=== PATIENT | female | born 1960 | race Caucasian/White ===

== ENCOUNTER 2021-11-18 02:08 | Day surgery (SDC) | payer OTHER, SELFPAY ==
[2021-10-25 10:54] VITALS: BMI 33.1
--- NOTE | 2021-11-15 16:00 | P.HP_ITS ---
History of Present Illness History of Present Illness Consent: Risks, benefits, and alternatives have been discussed and questions answered. Patient agrees to proceed with procedure. Chief complaint: neoplasm screening Narrative: Livier Smith is a 61 year old female referred for colon cancer screening. Her last colonoscopy was 10 years ago. Review of Systems Review of Systems: All systems reviewed & are unremarkable except as noted in HPI and below PMFSH Social History Social History Smoking packs per day: 0.5 Smoking cigarettes per day: 10.0 Years smoked: 35 Smoking pack-years: 17.50 Smoking status: Current every day smoker Tobacco type: cigarettes Alcohol intake: current Alcohol use details: occasional Substance use: never Substance use type: does not use Living arrangements: with family Spiritual care concerns: No Meds Home Medications and Allergies Home Medications Medication Instructions Recorded Confirmed Type fenofibric acid (choline) 135 mg 135 mg PO DAILY 10/25/21 11/18/21 History capsule,delayed release icosapent ethyl 1 gram capsule 1 g PO DAILY 10/25/21 11/18/21 History lysine 1,000 mg tablet 1,000 mg PO DAILY 10/25/21 11/18/21 History triamterene 37.5 1 cap PO DAILY 10/25/21 11/18/21 History mg-hydrochlorothiazide 25 mg capsule Allergies Allergy/AdvReac Type Severity Reaction Status Date / Time No Known Allergies Allergy Unknown Verified 11/18/21 06:22 Exam Resp: Auscultation: clear to auscultation bilaterally Cardio: Rate: regular rate Rhythm: regular rhythm GI: GI Palp: Yes Soft to palpation and No Tenderness to palpation present (GI) Assessment and Plan Assessment and plan (1) Colon cancer screening: Code(s): Z12.11 - Encounter for screening for malignant neoplasm of colon Status: Acute Assessment and Plan: Colonoscopy with possible biopsy or polypectomy or cautery or injection of subs tances.
[2021-11-18 06:15] VITALS: BP 149/95; PULSE 98; RESP 18; TEMP 36; O2SAT 98; BMI 38.9
[2021-11-18] MEDS: LACTATED RINGERS 1,000 ML 150 ML IV CONT (06:35)
--- NOTE | 2021-11-18 07:22 | P.PNAN_ITS ---
Anes - Initial Pre Proc Eval Procedure: Operation Date: 11/18/21 07:30 Proposed Procedures p Screening Colonoscopy - Ha Lyons MD Date/Time: 11/18/21 07:22 Surgeon: Ha Lyons MD Pre Op Diagnosis: neoplasm screening Patient Data Age: 61 Gender: F Height: 1.55 m Weight: 93.4 kg Last Vital Signs Temp 36.0 C L 11/18/21 06:15 Pulse 98 11/18/21 06:15 Resp 18 11/18/21 06:15 BP 149/95 H 11/18/21 06:15 Pulse Ox 98 11/18/21 06:15 O2 Del Method Room Air 11/18/21 06:15 Allergies Allergy/AdvReac Type Severity Reaction Status Date / Time No Known Allergies Allergy Unknown Verified 11/18/21 06:22 Home Medications Medication Instructions Recorded Confirmed Type fenofibric acid (choline) 135 mg 135 mg PO DAILY 10/25/21 11/18/21 History capsule,delayed release icosapent ethyl 1 gram capsule 1 g PO DAILY 10/25/21 11/18/21 History lysine 1,000 mg tablet 1,000 mg PO DAILY 10/25/21 11/18/21 History triamterene 37.5 1 cap PO DAILY 10/25/21 11/18/21 History mg-hydrochlorothiazide 25 mg capsule Patient hx anesthesia problems: none Family hx anesthesia problems: none Results Review: All pre-operative results and documents have been reviewed as part of the pre- operative evaluation. [facility] Past Medical History Medical History (Updated 11/18/21 @ 07:24 by Dustin Vega MD) HTN (hypertension) Hyperlipidemia Obesity Social History Social History Smoking packs per day: 0.5 Smoking cigarettes per day: 10.0 Years smoked: 35 Smoking pack-years: 17.50 Smoking status: Current every day smoker Tobacco type: cigarettes Alcohol intake: current Alcohol use details: occasional Substance use: never Substance use type: does not use Living arrangements: with family Spiritual care concerns: No Anes - Eval Final PreProcedure Day of Procedure 11/18/21 07:22 Patient weight: obese Heart: regular rate and rhythm Lungs: clear to auscultation and normal air movement Airway: Mallampati scale class II Neurological: alert and oriented Last oral intake: >/= 8 hours ASA classification: III Emergent: no Anesthetic plan: proceed Anesthesia type and monitoring: general GIVS Results Review: All pre-operative results and documents have been reviewed as part of the pre- operative evaluation. Informed Consent: The patient's anesthetic plan and its attendant risks and benefits were discussed with the patient/family/POA. Questions were solicited and answers provided to the satisfaction of the patient/family/POA.
[2021-11-18 07:50] VITALS: BP 93/56; PULSE 67; RESP 20; O2SAT 98
[2021-11-18 08:00] VITALS: BP 104/60; PULSE 67; RESP 19; O2SAT 99
[2021-11-18 08:10] VITALS: BP 114/77; PULSE 69; RESP 17; O2SAT 99
== END 2021-11-18 08:13 | disposition home or self-care (01) ==
PROVIDERS: PCP Nurse Practitioner Adult Health; Visit Provider Internal Medicine Gastroenterology
PROC: 0DJD8ZZ Inspection of Lower Intestinal Tract, Via Natural or Artificial Opening Endoscopic (ICD-10-PCS; CPT 45378; principal; 2021-11-18 07:30)
DX: Z12.11 Encounter for screening for malignant neoplasm of colon (principal); K64.4 Residual hemorrhoidal skin tags; K63.5 Polyp of colon; K57.30 Diverticulosis of large intestine without perforation or abscess without bleeding; I10 Essential (primary) hypertension; E78.5 Hyperlipidemia, unspecified; F17.210 Nicotine dependence, cigarettes, uncomplicated; E66.9 Obesity, unspecified; Z68.38 Body mass index [BMI] 38.0-38.9, adult
CPT/HCPCS: 45378; 88305; J2704; J7120

== ENCOUNTER 2022-11-04 13:19 | Outpatient (CLI) | payer OTHER, SELFPAY ==
--- NOTE | ~2022-11-04 | CT_ITS ---
EXAMINATION: CT lung screening DATE: 11/04/2022 13:48 INDICATION: 20 pack year hx- 1/2 ppd for 40 years TECHNIQUE: Computed tomography (CT) of the chest was performed without intravenous contrast. Addition al 3D reconstructions utilizing coronal maximum intensity projection (MIP) were performed. Automated exposure control and iterative reconstruction technique were employed. The dose-length product was 17 0.29 mGy-cm. COMPARISON: None FINDINGS: There are few scattered small bilateral calcified pulmonary nodules consistent with old granulomatous disease. No noncalcified pulmonary nodules identified. No pneumonia, pulmonary edema or pleural effu armando. Heart size is normal. Aortic valve calcification. No pericardial effusion. Thoracic aorta is no rmal in caliber. No pathologically enlarged thoracic lymphadenopathy. 6 mm low-attenuation likely cys t in the left hepatic lobe. Multiple calcified gallstones in the decompressed normal gallbladder. 1.4 cm low-attenuation left adrenal adenoma. Moderate to severe thoracic spondylosis. IMPRESSION: 1. Lung-RADS category 1: Negative. Continue annual screening with noncontrast low-dose chest CT in 12 months. Reviewed, dictated and finalized at location A. IMPRESSION: 1. Lung-RADS category 1: Negative. Continue annual screening with noncontrast l ow-dose chest CT in 12 months.
== END 2022-11-04 13:20 | disposition home or self-care (01) ==
PROVIDERS: PCP Internal Medicine; Visit Provider Internal Medicine
DX: Z12.2 Encounter for screening for malignant neoplasm of respiratory organs (principal); F17.210 Nicotine dependence, cigarettes, uncomplicated
CPT/HCPCS: 71271

== ENCOUNTER 2023-10-02 07:04 | Outpatient (CLI) | payer OTHER, SELFPAY ==
[2023-10-02 08:01] LABS: Basophils Absolute Auto 0.1 K/mm3 (0.0-0.1); Basophils Percent Auto 1.5 % (0.2-1.2); Eosinophils Absolute Auto 0.2 K/mm3 (0-0.3); Eosinophils Percent Auto 3.7 % (0-4.4); Hematocrit 50.3 % (37.0-47.0); Hemoglobin 16.2 g/dL (12.0-15.0); Immature Granulocyte Absolute 0.02 K/mm3 (0.00-0.031); Immature Granulocyte Percent A 0.3 % (0-0.5); Lymphocytes Absolute Auto 2.53 K/mm3 (0.9-3.2); Lymphocytes Percent Auto 41.2 % (18.3-44.2); Mean Corpuscular HGB Conc 32.2 g/dl (32-36); Mean Corpuscular Volume 86.9 fl (80-100); Mean Platelet Volume 9.5 fl (7.4-10.4); Monocytes Absolute Auto 0.5 K/mm3 (0.1-0.6); Monocytes Percent Auto 8.5 % (2.6-8.5); Neutrophils Absolute Auto 2.8 K/mm3 (1.3-6.7); Neutrophils Percent Auto 44.8 % (45.5-73.1); Platelet Count Result 254 k/mm3 (150-375); Red Blood Count 5.79 M/mm3 (4.2-5.4); Red Cell Distribution Width 13.5 % (11.5-14.5); White Blood Count 6.1 K/mm3 (4.5-10.0)
[2023-10-02 08:42] LABS: Alanine Aminotransferase 38 U/L (6-35); Albumin Level 4.4 g/dL (3.5-5.1); Alkaline Phosphatase 44 U/L (38-126); Anion Gap 4 mmol/L (4-12); Aspartate Amino Transferase 36 U/L (14-36); Bilirubin,Total 0.6 mg/dL (0.2-1.3); Blood Urea Nitrogen 15 mg/dL (7-17); Calcium 9.8 mg/dL (8.4-10.2); Carbon Dioxide 30 mmol/L (22-30); Chloride 106 mmol/L (98-107); Cholesterol 166 mg/dL (0-200); Estimated Glomerular Filt Rate > 60; Glucose 103 mg/dL (65-110); HDL Direct 67 mg/dL; Potassium 3.9 mmol/L (3.4-5.0); Sodium 140 mmol/L (137-145); Triglycerides 147 mg/dL (<150)
[2023-10-02 08:53] LABS: LDL Cholesterol Direct 55 mg/dL
[2023-10-02 09:11] LABS: Thyroid Stimulating Hormone 0.827 uIU/mL (0.465-4.680)
[2023-10-02 09:47] LABS: Folic Acid 7.6 ng/mL (2.76->20)
== END 2023-10-02 07:05 | disposition home or self-care (01) ==
LOC: ANHLAB 07:06
PROVIDERS: PCP Internal Medicine; Visit Provider Physician Assistant
DX: Z00.00 Encounter for general adult medical examination without abnormal findings (principal)
CPT/HCPCS: 36415; 80053; 80061; 82607; 82746; 84443; 85025

== ENCOUNTER 2024-04-04 07:28 | Outpatient (CLI) | payer OTHER, SELFPAY ==
--- NOTE | ~2024-04-04 | CT_ITS ---
EXAMINATION: CT abdomen pelvis w con DATE: 04/04/2024 07:55 INDICATION: Generalized abdominal pain. TECHNIQUE: Computed tomography (CT) of the abdomen and pelvis was performed with 100 mL Omnipaque 350 intravenous contrast. Automated exposure control and iterative reconstruction technique were employe d. The dose-length product was 897.67 mGy-cm. COMPARISON: Chest CT 11/04/2022 FINDINGS: The visualized portions of the lung bases demonstrate mild atelectasis. No pleural effusion . The heart size is normal. No pericardial effusion. There are cysts in the liver measuring up to 7 m m. There are gallstones in the gallbladder, which is normal in size. Gallbladder wall thickening is n oted. The spleen, pancreas, and right adrenal gland are normal. There is a 1.5 cm mass in left adrena l gland that measured low attenuation on the prior CT, consistent with an adenoma. Right kidney is no rmal. There is a 2 mm stone in left kidney. There is a 5 mm cyst in left kidney. There is a 4.[address] in right ovary. There is a left inguinal hernia containing fat. There are no dilated loops of danisha l. The appendix is normal. There are no pathologically enlarged lymph nodes. There is no free intrape ritoneal fluid. There is severe thoracic spondylosis and mild lumbar spondylosis. IMPRESSION: 1. Cholelithiasis. Gallbladder wall thickening may be secondary to acute or chronic cholecystitis. 2. 4.1 cm cyst in right ovary, likely a follicular cyst. Reviewed, dictated and finalized at location A. IMPRESSION: 1. Cholelithiasis. Gallbladder wall thickening may be secondary to acute or chr onic cholecystitis. 2. 4.1 cm cyst in right ovary, likely a follicular cyst.
[2024-04-04 07:52] LABS: Estimated Glomerular Filt Rate > 60
== END 2024-04-04 07:29 | disposition home or self-care (01) ==
PROVIDERS: PCP Internal Medicine; Visit Provider Nurse Practitioner
DX: R10.84 Generalized abdominal pain (principal); R14.0 Abdominal distension (gaseous); K80.20 Calculus of gallbladder without cholecystitis without obstruction; N83.201 Unspecified ovarian cyst, right side
CPT/HCPCS: 74177; Q9967

== ENCOUNTER 2024-05-23 07:35 | Outpatient (CLI) | payer OTHER, SELFPAY ==
--- NOTE | ~2024-05-23 | NM_ITS ---
EXAMINATION: NM hepatobiliary wo pharm DATE: 05/23/2024 11:56 INDICATION: Cholelithiasis and gallbladder wall thickening COMPARISON: None. TECHNIQUE: 5 mCi Tc-99m mebrofenin (Choletec) was administered intravenously. Scintigraphic images o f the abdomen were obtained for one hour. Additional one hour and 4 hours delayed scintigrams were ob tained in the frontal and right lateral projections. FINDINGS: There is normal clearance of radiotracer from the blood pool. There is homogeneous tracer u ptake by the liver. Activity progresses to the common bile duct and duodenum by 10 minutes. No evide nt accumulation of activity in the gallbladder. IMPRESSION: 1. No evident gallbladder activity which is concerning for acute cholecystitis. Differential would i nclude chronic cholecystitis and either prolonged fasting or recent ingestion within 4 hours of imagi ng. Correlate for Manzanares sign. Reviewed, dictated and finalized at location A. L OPPORTUNITY COUNSELOR IMPRESSION: 1. No evident gallbladder activity which is concerning for acute cholecystitis . Differential would include chronic cholecystitis and either prolonged fasting or recent ingestion within 4 hours of imaging. Correlate for Manzanares sign.
--- OUTSIDE RECORDS SUMMARY | 2024-05-28 19:33 | XMS_ITS | CONTINUITY OF CARE DOCUMENT ---
Author Name cleo, cleo Address Unknown Organization [facility] Address [address] [place] [address] Phone [phone] Care Team Providers Care Supervisor Filling And Packing Name Role Phone Zoila SPANGLER, Cristian Unavailable [phone] SURJIT ANDREWS MD Unavailable SURJIT ANDREWS MD Unavailable VITAL SIGNS Date Observation Value Provider blood pressure, diastolic 96 mm[Hg] Whitaker blood pressure, systolic 142 mm[Hg] Ephraim Su SOCIAL HISTORY Date Observation Value Provider smoking status current Luisa escobar FUNCTIONAL STATUS Date Observation Value Provider periodic limb movement index absent (0) Arminda Peters INSURANCE PROVIDERS Payer name Policy type / Coverage type [place] red green party ID [employer] OPEN ACCESS Other [id number]
--- OUTSIDE RECORDS SUMMARY | 2024-05-28 19:33 | XMS_ITS | Referral Summary ---
Author Organization [facility] [address] [place] [id number] Care Team Providers Care Glass Cylinder Flanger Name Role Phone Gianluca Adams MD Primary Care Provider [phone] Social History Tobacco Use Types Packs/Day Years Used Date Smoking Tobacco: Never Assessed Comments No Sex and Gender Information Value Date Recorded Sex Assigned at Not on file Legal Sex Female 8:23 PM [facility] Gender Identity Not on file Sexual Orientation Not on file Plan of Treatment Not on file Procedures Procedure Name Priority Date/Time Associated Diagnosis Comments DIAGNOSTIC MAMMOGRAM BILATERAL W MIGUEL A Schedule Routine, Read Routine (OP Routine) 12/07/2023 9:33 AM CDT Mass of left breast, unspecified quadrant from Last 3 Months or Most Recently Relevant to Health Maintenance Results * Diagnostic Mammogram Bilateral W Miguel A (12/07/2023 9:33 AM CDT) Anatomical Region Laterality Modality Breast Bilateral Mammography 12/07/2023 10:0 4 AM CDT Narrative 12/07/2023 10:08 AM CDT EXAM DESCRIPTION: ?? US BREAST LEFT LIMITED; DIAGNOSTIC MAMMOGRAM BILATERAL W MIGUEL A REASON FOR STUDY: 63-year-old woman comes in today for evaluation of an area of palpable concern/pain in the left breast, and screening of the right breast. COMPARISON: 02/24/2023, 01/01/2022, 11/08/2020. FINDINGS: CC and MLO digital breast tomosynthesis of ??both breasts ??with C view was performed. Targeted sonographic examination of the ??left ??breast was also performed with real-time grayscale images and color Doppler. FINDINGS: MAMMOGRAPHIC FINDINGS: DENSITY: ??There are scattered areas of fibroglandular density. BREASTS: ??There are a few scattered benign microcalcifications in both breasts without suspicious interval change. ??There is no new suspicious finding in either breast on mammogram. ??Specifically, no new suspicious findings are seen in the left breast in the area of reported concern. ??A BB marker was placed at this level, and localizes to the 7 o'clock position posterior depth. ULTRASOUND FINDINGS: Targeted sonographic examination of the left breast at the 7 o'clock position 9-10 cm from the nipple demonstrates only normal fatty and fibroglandular are tissue without suspicious solid or cystic masses. ?? IMPRESSION: 1. ?? No suspicious findings are seen in the left breast on mammogram or sonogram to account for patient's symptoms. ??Continued monthly breast self-examination and clinical follow-up is recommended. ??Any further management at this time should be based on clinical assessment. 2. ?? No new suspicious findings in either breast on mammogram. ??Annual bilateral screening mammography is recommended in 12 months. BIRADS: 2 - Benign I discussed the findings and recommendations with the patient at the time of the examination. ?? THIS IS AN ELECTRONICALLY VERIFIED FINAL REPORT 12/07/2023 10:08 AM - Electronically signed by ??Charles Vaughn M.D. RL: ANURADHA D: ??12/07/2023 10:08 AM T: ??12/07/2023 10:08 AM Report ID: [id number] Reading Location: ??MAMMMHE us Romero Velarde MD IMG MAMMO PROCEDURES Carmela l Result from Last 3 Months or Most Recently Relevant to Health Maintenance Insurance [facility] Care Teams Glass Cylinder Flanger Relationship Specialty Start Date End Date Gianluca Adams MD [address] [facility] [address] [place] [address] PCP - General Internal Medicine 11/20/22
--- OUTSIDE RECORDS SUMMARY | 2024-05-28 19:33 | XMS_ITS | Encounter Summary ---
Author Organization [facility] Healthcare Address [address] [place] [address] Care Team Providers Care Publishing Agent Name Role Phone Gianluca Adams MD Primary Care Provider [phone]- [phone] Reason for Visit * Diagnostic Imaging (Routine) - Pending Review Specialty Diagnoses / Procedures Referred By Talon flores Referred To Contact Diagnoses Mass of left breast, unspecified quadrant Procedures Diagnostic Mammogram Bilateral W Miguel A Diagnostic Mammogram Left W Miguel A Romero Lee MD [address] [address] Phone: tel: fax: [address] [address] Referral ID Status Reason Start Date Expiration Date V isits Requested Visits Authorized [id number] Pending Review 12/04/2023 01/02/2025 1 1 Encounter Details Date Type Department Care Team (Latest Contact Info) Description 12/07/2023 8:55 AM CDT - 12/07/2023 11:59 PM CDT Hospital Encounter [facility] [address] [place] [address] [place] [phone] Mass of left breast, unspecified quadrant Discharge Disposition: Discharge to home or self care Social History Tobacco Use Types Packs/Day Years Used Date Smoking Tobacco: Never Assessed Comments No Sex and Gender Information Value Date Recorded Sex Assigned at Not on file Legal Sex Female 8: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 MANAGER [facility] Gender Identity Not on file Sexual Orientation Not on file documented as of this encounter Discharge Disposition Disposition Code Departure Means Destination Discharge to home or self care documented in this encounter Plan of Treatment Not on file documented as of this encounter Procedures Procedure Name Priority Date/Time Associated Diagnosis Comments DIAGNOSTIC MAMMOGRAM BILATERAL W MIGUEL A Schedule Routine, Read Routine (OP Routine) 12/07/2023 9:33 AM CDT Mass of left breast, unspecified quadrant documented in this encounter Results * Diagnostic Mammogram Bilateral W Miguel [...] AM T: ??12/07/2023 10:08 AM Report ID: [id number] Reading Location: ??MAMMM[facility] Romero Velarde MD IMG MAMMO PROCEDURES Carmela l Result documented in this encounter Visit Diagnoses Diagnosis Mass of left breast, unspecified quadrant documented in this encounter Care Teams Publishing Agent Relationship Specialty Start Date End Date Gianluca Adams MD [address] [facility] [address] [place] [address] PCP - General Internal Medicine 11/20/22 documented as of this encounter
--- OUTSIDE RECORDS SUMMARY | 2024-05-28 19:33 | XMS_ITS | Encounter Summary ---
Author Organization [facility] [employer] Address [address] [place] [address] Care Team Providers Care Ballet Company Member Name Role Phone Ruth Kaba Primary Care Provider + Reason for Visit * Reason Onset Date Comments Follow-up 03/07/2018 Encounter Details Date Type Department Care Team (Late st Contact Info) Description 03/07/2018 Telephone [facility] [address] [phone] Provider, [facility] Exp Yadi Follow-up Social History Tobacco Use Types Packs/Day Years Used Date Smoking Tobacco: Some Days Cigarettes 0.3 30 Smokeless Tobacco: Never Comments:1 pack for 2/3 days Alcohol Use Standard Drinks/Week Comments Yes 0 (1 standard drink = 0.6 oz pur e alcohol) maybe once weekly, not always Sex and Gender Information Value Date Recorded Sex Assigned at Not on file Gender Identity Not on file Sexual Orientation Not on file documented as of this encounter Miscellaneous Notes * Telephone Encounter - Emily Veloz - 03/07/2018 10:23 AM CDT Contacted patient regarding follow up. Patient is feeling better. documented in this encounter Plan of Treatment Not on file documented as of this encounter Visit Diagnoses Not on filedocumented in this encounter Care Teams Ballet Company Member Relationship Specialty Start Date End Date Ruth Kaba APRN-CNP [address] [address] PCP - General Nurse Practitioner 03/05/18 11/18/21 documented as of this encounter
--- OUTSIDE RECORDS SUMMARY | 2024-05-28 19:33 | XMS_ITS | Patient Health Summary ---
Author Organization [facility] Address [address] [place] [address] Care Team Providers Care Block Chopper Hand Name Role Phone Sesar Ruth JEANETTE-INSECT CONTROL AIDE Primary Care Provider + Note from [facility],non-owned Affiliates and Associated Physician Practices is amultiple site organization consisting of ambulatory clinics and hospital sitesin [place], [place] and [place]. This disclosure is being madepursuant to the Care Everywhere program and may not contain all information available regarding this patient. Last updated 18.[facility] Allergies No known active allergies Medications * Be aware that medications may not be up to date on this document. Alwaysverify current medications with the patient. * calcium-vitamin D (CALTRATE PLUS D) 600-200 MG-UNIT tablet Take 1 tablet by mouth once daily * Cholecalciferol (VITAMIN D PO) * FENOFIBRATE PO * Icosapent Ethyl (VASCEPA PO) Social History Tobacco Use Types Packs/Day Years [...] on file Sexual Orientation Not on file Last Filed Vital Signs Vital Sign Reading Time Taken Comments Blood Pressure 110/80 03/05/2018 9:46 AM CDT Pulse 85 03/05/2018 9:46 AM CDT Temperature 37 ??C (98.6 ??F) 03/05/2018 9:46 AM CDT Respiratory Rate 18 03/05/2018 9:46 AM CDT Oxygen Saturation - - Inhaled Oxygen Concentration - - Weight 90.7 kg (200 lb) 03/05/2018 9:46 AM CDT Height 157.5 cm (5' 2 ) 03/05/2018 9:46 AM CDT Body Mass Index 36.58 03/05/2018 9:46 AM CDT Procedures * STREP A SCREEN - POINT OF CARE (AMB) STL(Performed 03/05/2018) Performed for Strep throat Results * (ABNORMAL) STREP A SCREEN - POINT OF CARE (AMB) STL (03/05/2018) Strep A Rapid POCT Positive(A) Negative Strep A Internal Control Present Lot # [id number] Expiration Date Throat ENTIRE THROAT (SURFACE REGION OF NECK) / Unknown 03/05/2018 Sol [facility] - POINT OF CARE ORDERABLES Care Teams Block Chopper Hand Relationship Specialty Start Date End Date Ruth Kaba APRN-CNP [address] [employer] [address] PCP - General 11/21/21
--- OUTSIDE RECORDS SUMMARY | 2024-05-28 19:33 | XMS_ITS | Encounter Summary ---
Author Organization [facility] Address [address] [place] [address]. [place] [address] [place] [address] Care Team Providers Care Mapping Editor Name Role Phone Unavailable Primary Care Provider Unavailabl e Encounter Details Date Type Department Care Team (Late st Contact Info) Description 03/23/2010 Abstract [facility] [address] [place], [place] [id number] Oneyda Armenta MD [address], [place] [address] Social History Tobacco Use Types Packs/Day Years Used Date Smoking Tobacco: Never Assessed Comments Unknown Sex and Gender Information Value Date Recorded Sex Assigned at Not on file Legal Sex Female 8:27 PM CDT Gender Identity Not on file Sexual Orientation Not on file documented as of this encounter Plan of Treatment Not on file documented as of this encounter Visit Diagnoses Diagnosis Pain in joint, ankle and foot documented in this encounter
--- OUTSIDE RECORDS SUMMARY | 2024-05-28 19:33 | XMS_ITS | Clinical Summary ---
Author Organization [facility] Address [address] [place] [address]. [place] [address] [place] [address] Care Team Providers Care Swiss Type Screw Machine Operator Name Role Phone Unavailable Primary Care Provider Unavailabl e Social History Tobacco Use Types Packs/Day Years Used Date Smoking Tobacco: Never Assessed Comments Unknown Sex and Gender Information Value Date Recorded Sex Assigned at Not on file Legal Sex Female 8:27 PM CDT Gender Identity Not on file Sexual Orientation Not on file Plan of Treatment Health Maintenance Due Date Last Done Comments Cervical Cancer Screening Pa p Smear (Age 30 to 64) Every 3 Years 1960 Colorectal Cancer Screening Colonoscopy (10 Years) 1960 Annual Physical 09/11/1963 Hepatitis C 1978 DTaP, Tdap and Td Vaccines ( 1 - Tdap) 09/11/1979 Cervical Cancer Screening Pa p with HPV Testing (Age 30 to 64) Every 5 Years 1990 Cervical Cancer Screening with HPV 1990 Mammogram Screening 2000 Zoster Vaccines (1 of 2) 2010 COVID-19 Vaccine ( - 2023-2 5 season) 2024 Influenza Adult (#1) 2024 RSV Immunization or 60+ Years (1 - 1-dose 75+ series) 09/11/2035 Meningococcal Vaccine Aged Out No nya nelia eligible based on patient's age to complete this topic Pneumococcal Vaccine: Pediat rics (0 to 5 Years) and At-Risk Patients (6 to 64 Years) Aged Out No longer eligible b ased on patient's age to complete this topic RSV Immunizations Under 20 Months Aged Out No longer eligible based on patient's age to complete this topic
--- OUTSIDE RECORDS SUMMARY | 2024-05-28 19:33 | XMS_ITS | Clinical Summary ---
Author Organization [facility] Address [address] [place] [address] Care Team Providers Care Social Service Manager Name Role Phone Ruth Kaba JEANETTE-SENIOR IT ARCHITECT Primary Care Provider + Source Comments [facility] and Associated Physician Practices is amultiple site organization consisting of ambulatory clinics and hospital sitesin [place], [place] and [place]. This disclosure is being madepursuant to the Care Everywhere program and may not contain all information available regarding this patient. Last updated 18.[facility] Allergies No known active allergies Medications * Be aware that medications may not be up to date on this document. Alwaysverify current medications with the patient. Medication Sig Dispensed Refills Start Date End Date Status calcium-vitamin D (CALTRATE PLUS D) 600-200 MG-UNIT tablet Take 1 tablet by mouth once daily Active Cholecalciferol (VITAMIN D PO) Active FENOFIBRATE PO Active Icosapent Ethyl (VASCEPA PO) Active Family History Medical History Relation Name Comments None Known Father None Known Mother Relation Name Status Comments Father Alive Mother Alive Social History Tobacco Use Types Packs/Day Years [...] Mass Index 36.58 03/05/2018 9:46 AM CDT Plan of Treatment Health Maintenance Due Date Last Done Comments COLOGUARD (AGES 45-75) - COL ON CA SCREENING 1960 COLON MONITORING 1960 COLONOSCOPY - COLON CA SCREENING 1960 CT COLONOGRAPHY - COLON CA SCREENING 1960 Colorectal Cancer Screening 1960 FIT - COLON CA SCREENING 1960 FLEX SIG - COLON CA SCREENING 1960 LIPID TESTING 1960 MAMMOGRAM 1960 PAP SMEAR 1960 PNEUMOCOCCAL VACCINE (1 of 2 - PCV) 1966 HIV SCREENING 09/11/1975 HEPATITIS C SCREENING 09/06/1978 DTAP/TDAP/TD VACCINES (1 - Tdap) 09/11/1979 ZOSTER VACCINE (1 of 2) 2010 SCREENING FOR DIABETES 03/05/2018 DEPRESSION SCREENING 06/08/2023 COVID-19 VACCINE (1 - 2023-2 5 season) 2024 INFLUENZA VACCINE (#1) 2024 Respiratory Syncytial Virus (RSV) Vaccine Pt: or over 60 yrs (1 - 1-dose 75+ series) 09/11/2035 HEPATITIS B VACCINE Aged Out No longe r eligible based on patient's age to complete this topic HIB VACCINE Aged Out No longer eligi ble based on patient's age to complete this topic HPV VACCINE Aged Out No longer eligi ble based on patient's age to complete this topic MENINGOCOCCAL VACCINE Aged Out No nya nelia eligible based on patient's age to complete this topic Care Teams Social Service Manager Relationship Specialty Start Date End Date Ruth Kaba APRN-CARSON [address] [address] PCP - General 11/21/21
--- OUTSIDE RECORDS SUMMARY | 2024-05-28 19:33 | XMS_ITS | Encounter Summary ---
Author Organization [facility] Healthcare Address [address] [place] [address] Care Team Providers Care Pipe Coverer Helper Name Role Phone Ruth Kaba NP Primary Care Provider [phone] Reason for Referral * Diagnostic Imaging (Routine) - Closed Specialty Diagnoses / Procedures Referred By Contac t Referred To Contact Diagnoses Screening mammogram, encounter for Procedures Screening Mammogram Bilateral W Miguel A Screening Mammogram, Self Referral ID Status Reason Start Date Expiration Date Visits Re quested Visits Authorized [id number] Closed 10/21/2021 11/20/2022 1 1 * Diagnostic Imaging (Routine) - Closed Specialty Diagnoses / Procedures Referred By Contac t Referred To Contact Diagnoses Screening mammogram, encounter for Procedures Screening Mammogram Bilateral W Miguel A Screening Mammogram, Self Referral ID Status Reason Start Date Expiration Date Visits Re quested Visits Authorized [id number] Closed 10/21/2021 11/20/2022 1 1 Reason for Visit * Diagnostic Imaging (Routine) - Closed Specialty Diagnoses / Procedures Referred By Contac t Referred To Contact Diagnoses Screening mammogram, encounter for Procedures Screening Mammogram Bilateral W Miguel A Screening Mammogram, Self Referral ID Status Reason Start Date Expiration Date Visits Re quested Visits Authorized [id number] Closed 10/21/2021 11/20/2022 1 1 Encounter Details Date Type Department Care Team (Latest Contact Info) Description 01/01/2022 2:45 PM CDT - 01/01/2022 11:59 PM CDT Hospital Encounter [facility] Medical Office Bldg 1 Breast [facility] [address] [address] Screening mammogram, encounter for Discharge Disposition: Discharge to home or self care Social History Tobacco Use Types Packs/Day Years Used Date Smoking Tobacco: Never Assessed Comments No Sex and Gender Information Value Date Recorded Sex Assigned at Not on file Legal Sex Female 8:23 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 Gender Identity Not on file Sexual Orientation Not on file documented as of this encounter Discharge Disposition Disposition Code Departure Means Destination Discharge to home or self care documented in this encounter Plan of Treatment Not on file documented as of this encounter Procedures Procedure Name Priority Date/Time Associated Diagnosis Comments SCREENING MAMMOGRAM BILATERAL W MIGUEL A Schedule Routine, Read Routine (OP Routine) 01/01/2022 3:00 PM CDT Screening mammogram, encounter for documented in this encounter Results * Screening Mammogram Bilateral W Miguel A (01/01/2022 3:00 PM CDT) Anatomical Region Laterality Modality Breast Bilateral Mammography Impressions 01/01/2022 3:12 PM CDT BI-RADS?? ATLAS category (overall): 2 - Benign There is no mammographic evidence of malignancy. A 1 year screening mammogram is recommended. The patient has been or will be contacted. We recommend annual screening mammography for women at average risk of breast cancer beginning at age 40, based on guidelines of the [employer] (ACR Practice Parameter for the Performance of Screening and Diagnostic Mammography) and [employer]. For women with and elevated risk of breast cancer, please refer to the ACR Practice Parameter for specific screening recommendations. The patient will be entered into a reminder system with a target due date of 1 year for her next screening exam. Narrative 01/01/2022 3:12 PM CDT Screening Mammogram Bilateral W Miguel A: 01/01/22 The study was acquired using full field digital technology and interpreted from soft copy. 2D digital mammographic views, as well as 3D digital tomosynthesis were performed in the CC and MLO projections. CLINICAL: ??Screening mammogram, encounter for. ??No relevant medical history has been documented for this patient. ??No known family history of breast cancer. COMPARISONS: 11/08/2020 Screening Mammogram Bilateral W Miguel A 06/04/2019 Screening Mammogram Bilateral W Miguel A 04/19/2018 Screening Mammogram Bilateral W Miguel A 01/19/2017 Screening Mammogram Bilateral W Miguel A BREAST TISSUE: The breasts have scattered areas of fibroglandular density. FINDINGS: There are unchanged benign microcalcifications and masses in both breasts. There is no new suspicious finding in either breast on mammogram. ?? us Self Screening Mammogram IMG MAMMO PROCEDURES Fi nal Result documented in this encounter Visit Diagnoses Diagnosis Screening mammogram, encounter for documented in this encounter Care Teams Pipe Coverer Helper Relationship Specialty Start Date End Date Ruth Kaba NP PCP - General 04/20/19 11/19/22 documented as of this encounter
--- OUTSIDE RECORDS SUMMARY | 2024-05-28 19:33 | XMS_ITS | Encounter Summary ---
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 Gender Identity Not on file Sexual Orientation Not on file documented as of this encounter Plan of Treatment Not on file documented as of this encounter Procedures Procedure Name Priority Date/Time Associated Diagnosis Comments SCREENING MAMMOGRAM BILATERAL W MIGUEL A 11/08/2020 2:20 PM CDT GENERAL RADIOLOGY REPORT 11/08/2020 12:00 AM CDT documented in this encounter Results * Screening Mammogram Bilateral W Miguel A (11/08/2020 2:20 PM CDT) Anatomical Region Laterality Modality Breast Bilateral Mammography 11/08/2020 2:34 PM CDT Narrative 11/08/2020 4:11 PM CDT Patient Name: IFEOMASTANLEY CORREA ?Ordering Dr: Ruth Kaba ?? D.O.B: 1960 ? Exam Date: 11/08/20 ?? 1420 ?? Age: 60 ?Sex: Female ? MR#: [id number] ?? Loc: ? RADIOLOGY REPORT ?? Order #[id number] ?? [facility] ? Stephy Bilat Screening 3D ? Signed ?- MG ?? BILATERAL DIGITAL SCREENING MAMMOGRAM 3D/2D WITH MEDIOLATERAL OBLIQUE ?? CRANIOCAUDAL: 11/08/2020 ?? The study was acquired using full field digital technology and interpreted from ?soft copy. ?2D digital mammographic views, as well as 3D digital tomosynthesis were ?? performed in the CC and MLO projections. ? CLINICAL: Routine mammogram. Patient denies any problems. No family history of ?? breast cancer. No personal history of breast cancer. ? COMPARISONS: Comparison is made to exams dated: ??06/04/2019 mammogram, ?? 04/17/2018 mammogram - [facility], and 01/17/2017 mammogram - [place] [facility]. ? BREAST TISSUE: There are scattered areas of fibroglandular density. ? FINDINGS: There are multiple small benign-appearing masses in both breasts. ? Additionally, there are benign calcifications in both breasts. ??No suspicious ?? masses, suspicious calcifications, or other suspicious findings are seen in ?? either breast. ??There has been no significant interval change. ? IMPRESSION: BI-RAD 2 ??BENIGN ?? There is no mammographic evidence of malignancy. A 1 year screening mammogram ?? is recommended. ? The patient has been or will be contacted. ? We recommend annual screening mammography for women at average risk of breast ?? cancer beginning at age 40, based on guidelines of the [employer] ?? [employer] (ACR Practice Parameter for the Performance of Screening and ?? Diagnostic Mammography) and [employer] and ?? Gynecologists. For women with an elevated risk of breast cancer, please refer ?? to the ACR Practice Parameter for specific screening recommendations. ? The patient will be entered into a reminder system with a target due date of 1 ?? year for her next screening exam. ? Electronically signed by: ?Liban Archer M.D. ? md/:11/08/2020 16:11:59 ? Oral Surgeon: Odette Tay)Jc), [facility] ?? letter sent: Normal Exam ? Reading location: ?? BI-RADS: 2 Benign ? REPORT ELECTRONICALLY SIGNED IN OTHER VENDOR SYSTEM ?? Resulting Agency Comment O Procedure Note Liban Archer MD - 11/08/2020 Patient Name: STANLEY SMITH Dr: Ruth Kaba D.O.B: 1960 Exam Date: 11/08/20 1420 Age: 60 Sex: Female MR#: [id number] Loc: RADIOLOGY REPORT Order #[id number] [facility] Stephy Bilat Screening 3D Signed - MG BILATERAL DIGITAL SCREENING MAMMOGRAM 3D/2D WITH MEDIOLATERAL OBLIQUE CRANIOCAUDAL: 11/08/2020 The study was acquired using full field digital technology andinterpreted from soft copy. 2D digital mammographic views, as well as 3D digital tomosynthesis were performed in the CC and MLO projections. CLINICAL: Routine mammogram. Patient denies any problems. No familyhistory of breast cancer. No personal history of breast cancer. COMPARISONS: Comparison is made to exams dated: 06/04/2019 mammogram, 04/17/2018 mammogram - [facility], and 01/17/2017 mammogram -[facility]. BREAST TISSUE: There are scattered areas of fibroglandular density. FINDINGS: There are multiple small benign-appearing masses in bothbreasts. Additionally, there are benign calcifications in both breasts. Nosuspicious masses, suspicious calcifications, or other suspicious findings are seenin either breast. There has been no significant interval change. IMPRESSION: BI-RAD 2 BENIGN There is no mammographic evidence of malignancy. A 1 year screeningmammogram is recommended. The patient has been or will be contacted. We recommend annual screening mammography for women at average risk ofbreast cancer beginning at age 40, based on guidelines of the [employer] (ACR Practice Parameter for the Performance of Screening and Diagnostic Mammography) and [employer]. For women with an elevated risk of breast cancer, pleaserefer to the ACR Practice Parameter for specific screening recommendations. The patient will be entered into a reminder system with a target due dateof 1 year for her next screening exam. Electronically signed by: Liban Archer M.D., md/:11/08/2020 16:11:59 Oral Surgeon: Odette Tay)(Sabrina), [facility] letter sent: Normal Exam Reading location: BI-RADS: 2 Benign REPORT ELECTRONICALLY SIGNED IN OTHER VENDOR SYSTEM Ruth Kaba NP IMG MAMMO PROCEDURES Final Res ult * GENERAL RADIOLOGY REPORT (11/08/2020 12:00 AM CDT) Anatomical Region Laterality Modality Radiographic Dyana ging Narrative 11/08/2020 12:00 AM CDT Ordered by an unspecified provider. Historical Provider IMJeb XR PROCEDURES Final R esult documented in this encounter Visit Diagnoses Not on filedocumented in this encounter Care Teams Pleating Machine Operator Relationship Specialty Start Date End Date Ruth Kaba NP PCP - General 04/20/19 11/19/22 documented as of this encounter
--- OUTSIDE RECORDS SUMMARY | 2024-05-28 19:33 | XMS_ITS | Encounter Summary ---
Author Organization [facility] Address [address] [facility] [place] [address] Care Team Providers Care Almond Paste Molder Name Role Phone Ruht Kaba JEANETTE-EGG PASTEURIZER Primary Care Provider + Reason for Visit * Reason Comments Sore Throat Congestion Encounter Details Date Type Department Care Team (Late Contact Info) Description 03/05/2018 9:40 AM CDT Office Visit [facility] AT [address] [place] [address] Provider, Deidre Exp Yadi Strep throat (Primary Dx) Social History Tobacco Use Types Packs/Day Years [...] on file documented as of this encounter Last Filed Vital Signs Vital Sign Reading [...] Mass Index 36.58 03/05/2018 9:46 AM CDT documented in this encounter Patient Instructions * Patient Instructions* Sol Mack, INDUSTRIAL TECHNICIAN-EGG PASTEURIZER - 03/05/2018 10:03 AM CDT Images from the original note were not included. Strep Throat TIPPLE TENDER: Strep throat is a throat infection caused by bacteria. It is easily spread from person to person. Common symptoms include the following: ?? Sore, red, and swollen throat ?? Fever and headache ?? Upset stomach, abdominal pain, or vomiting ?? White or yellow patches or blisters in the back of your throat ?? Tender, swollen lumps on the sides of your neck or jaw ?? Throat pain when you swallow Call 911 for any of the following: ?? You have trouble breathing. Seek care immediately if: ?? You have new symptoms like a bad headache, stiff neck, chest pain, or vomiting. ?? You are drooling because you cannot swallow your spit. Contact your healthcare provider if: ?? You have a fever. ?? You have a rash or ear pain. ?? You have green, yellow-brown, or bloody mucus when you cough or blow your nose. ?? You are unable to drink anything. ?? You have questions or concerns about your condition or care. Treatment for strep throat may include antibiotic medicine to treat your strep throat. You should feel better within 2 to 3 days after you start antibiotics. You may return to work or school 24 hoursafter you start antibiotics. Manage strep throat: ?? Use lozenges, ice, soft foods, or popsicles to soothe your throat. ?? Drink juice, milk shakes, or soup if your throat is too sore to eat solid food. Drinking liquidscan also help prevent dehydration. ?? Gargle with salt water. Mix ?? teaspoon salt in a glass of warm water and gargle. This may help reduce swelling in your throat. ?? Do not smoke. Nicotine and other chemicals in cigarettes and cigars can cause lung damage and make your symptoms worse. Ask your healthcare provider for information if you currently smoke and needhelp to quit. E-cigarettes or smokeless tobacco still contain nicotine. Talk to your healthcare provider before you use these products. Prevent the spread of strep throat: ?? Wash your hands often. Use soap and water. Wash your hands after you use the bathroom, change a child's diapers, or sneeze. Wash your hands before you prepare or eat food. ?? Do not share food or drinks. Replace your toothbrush after you have taken antibiotics for 24 hours. Follow up with your healthcare provider as directed: Write down your questions so you remember to ask them during your visits. ?? Copyright [employer] 2017 Information is for End User's use only and may not be sold, redistributed or otherwise used for commercial purposes. All illustrations and images included in CareNotes?? are the copyrighted property of [employer] or [employer] The above information is an park aide only. It is not intended as medical advice for individual conditions or treatments. Talk to your doctor, nurse or pharmacist before following any medical regimen to see if it is safe and effective for you. documented in this encounter Progress Notes * Sol Mack APRN-CNP - 03/05/2018 9:44 AM CDT [facility] Chief Complaint Patient presents with ??? Sore Throat ??? Congestion SUBJECTIVE: HPI Comments: 3 days ago symptoms started with sneezing,congestion. 2 days of cough that was dry and is now wet. Last night sore throat started, voice was hoarse. Sore throat feels feels raw, throat pain is 5/10 on pain scale. Pt. Has not taken pain medications. Pt. Has tried Coricidin HBP which has not helped. Pt. Denies wheezing, chest tightness, shortness of breath. Pt. Denies h/o pneumonia orbronchitis. Pt. Is eating and drinking normally. Pt. Denies known strep exposure, pt says she was at the baseball game 2 nights ago and now her friend has similar symptoms. Pt. Is concerned she has something , she is taking care of her great grandparents and wants to be sure she is not spreading an ything. General The history is provided by the patient. This is a new problem. The current episode started more than 2 days ago (3 days). The problem occurs constantly. The problem has not changed since onset.The pain is at a severity of 5/10. The symptoms are localized to the mouth (throat).Pertinent negatives include no chest pain, no headaches and no shortness of breath. The symptoms are aggravated by swallowing. Nothing relieves the symptoms. Treatments tried: Coricidin HBP. The treatment provided no relief. Past Medical History: Diagnosis Date ??? Hyperlipemia No current outpatient prescriptions on file prior to visit. No current facility-administered medications on file prior to visit. Past Surgical History: Procedure Laterality Date ??? NEGATIVE SURGICAL HISTORY Social History Social History ??? Marital status: Single Spouse name: N/A ??? Number of children: N/A ??? Years of education: N/A Occupational History ??? Not on file. Social History Main Topics ??? Smoking status: Current Some Day Smoker Packs/day: 0.25 Years: 30.00 Types: Cigarettes ??? Smokeless tobacco: Never Used Comment: 1 pack for 2/3 days ??? Alcohol use Yes Comment: maybe once weekly, not always ??? Drug use: Not on file ??? Sexual activity: Not on file Other Topics Concern ??? Not on file Social History Narrative ??? No narrative on file Family History Problem Relation Age of Onset ??? None Known Mother ??? None Known Father Current Outpatient Prescriptions Medication Sig Dispense Refill ??? calcium-vitamin D (CALTRATE PLUS D) 600-200 MG-UNIT tablet Take 1 tablet by mouth once daily ??? Cholecalciferol (VITAMIN D PO) ??? FENOFIBRATE PO ??? Icosapent Ethyl (VASCEPA PO) ??? amoxicillin (AMOXIL) 500 MG capsule Take 1 capsule by mouth 2 times daily for 10 days 20 capsule 0 No current facility-administered medications for this visit. No Known Allergies REVIEW OF SYSTEMS: Review of Systems Constitutional: Negative for chills, diaphoresis, fever and malaise/fatigue. HENT: Positive for congestion and sore throat. Negative for ear pain and sinus pain. Respiratory: Positive for cough. Negative for hemoptysis, sputum production, shortness of breath and wheezing. Cardiovascular: Negative for chest pain. Gastrointestinal: Negative for diarrhea, nausea and vomiting. Musculoskeletal: Negative for myalgias and neck pain. Skin: Negative. Neurological: Negative for headaches. OBJECTIVE: General appearance: alert, well appearing, and in no distress. BP 110/80 (BP SITE: LEFT ARM, BP POSITION: SITTING, BP CUFF SIZE: 12) Pulse 85 Temp 98.6 ??F (37 ??C) (Oral) Resp 18 Ht 1.575 m (5' 2 ) Wt 90.7 kg (200 lb) BMI 36.58 kg/m2 Physical Exam Constitutional: She is oriented to person, place, and time and well-developed, well-nourished, and in no distress. She appears not lethargic, to not be writhing in pain and not dehydrated. She appears healthy. Non-toxic appearance. She does not have a sickly appearance. No distress. HENT: Right Ear: Tympanic membrane, external ear and ear canal normal. Left Ear: Tympanic membrane, external ear and ear canal normal. Nose: Rhinorrhea present. No mucosal edema or sinus tenderness. Right sinus exhibits no maxillary sinus tenderness and no frontal sinus tenderness. Left sinus exhibits no maxillary sinus tenderness and no frontal sinus tenderness. Mouth/Throat: Uvula is midline and mucous membranes are normal. No uvula swelling. No oropharyngealexudate, posterior oropharyngeal edema, posterior oropharyngeal erythema or tonsillar abscesses. Tonsils 0+, airway not compromised Eyes: Pupils are equal, round, and reactive to light. Neck: Trachea normal. No JVD present. No rigidity. No thyromegaly present. Cardiovascular: Normal rate, regular rhythm, normal heart sounds and normal pulses. No murmur heard. Pulmonary/Chest: Effort normal and breath sounds normal. Lymphadenopathy: She has cervical adenopathy. Right cervical: Superficial cervical adenopathy present. No deep cervical and no posterior cervicaladenopathy present. Left cervical: No superficial cervical, no deep cervical and no posterior cervical adenopathy present. Neurological: She is oriented to person, place, and time. She appears not lethargic. Gait normal. Skin: Skin is warm, dry and intact. No rash noted. ASSESSMENT: Office Visit on 03/05/18 STREP A SCREEN - POINT OF CARE (AMB) STL Result Value Ref Range Strep A Rapid Positive (Abnormal) Negative Strep A INTERNAL CONTROL Present Lot Number [id number] Expiration Date Encounter Diagnosis Name Primary? Strep throat Yes PLAN: Amox as ordered May take Tylenol or Ibuprofen as directed as needed Encourage fluids Switch toothbrush on Day 3 Reviewed AVS with patient Patient advised of the risk of peritonsillar abscess formation. Patient advised will be infectious for 24 hours after starting antibiotics. Follow up with clinic or PCP for worsening or ongoing symptoms Orders Placed This Encounter ??? STREP A SCREEN - POINT OF CARE (AMB) STL ??? amoxicillin (AMOXIL) 500 MG capsule Sig: Take 1 capsule by mouth 2 times daily for 10 days Dispense: 20 capsule Refill: 0 documented in this encounter Plan of Treatment Not on file documented as of this encounter Procedures Procedure Name Priority Date/Time Associated Diagnosis Comments STREP A SCREEN - POINT OF CARE (AMB) STL Routine 03/05/2018 Strep throat documented in this encounter Results * (ABNORMAL) STREP A SCREEN - POINT OF CARE (AMB) STL (03/05/2018) Strep A Rapid POCT Positive(A) Negative Strep A Internal Control Present Lot # [id number] Expiration Date Throat ENTIRE THROAT (SURFACE REGION OF NECK) / Unknown 03/05/2018 Sol [facility] - POINT OF CARE ORDERABLES documented in this encounter Visit Diagnoses Diagnosis Strep throat- Primary Streptococcal sore throat documented in this encounter Care Teams Almond Paste Molder Relationship Specialty Start Date End Date Ruth Kaba APRN-CNP [address] [id number] PCP - General Nurse Practitioner 03/05/18 11/18/21 documented as of this encounter
--- OUTSIDE RECORDS SUMMARY | 2024-05-28 19:33 | XMS_ITS | Clinical Summary ---
Author Organization 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 Gender Identity Not on file Sexual Orientation Not on file Obstetrics History Para Term AB IAB SAB Ectopic Multiple Livin g Live Births 2 2 2 Date Outcome GA Total Labor Labor/2nd/3rd Weight Sex Type Anes PTL Lily A1 A5 Name Clin Term Term Plan of Treatment Health Maintenance Due Date Last Done Comments Cervical Cancer Screening 1960 Colon Cancer Screening-Colonoscopy 1960 Depression Screening 1960 Hepatitis C Screening 1960 Hepatitis B Screening 1978 Regular Well Visit/Exam 18-64 1978 Zoster Vaccine (1 of 2) 2010 DTaP/Tdap/Td Vaccine (2 - Td or Tdap) 09/24/2020 09/24/2010 Covid-19 Vaccine ( season) 2024 04/24/2021, 09/01/2020, 08/09/2020 Influenza Vaccine (#1) 2024 , 03/11/2020, 05/18/2019, Additional history exists Breast Cancer Screening-Mammogram 12/06/2024 12/07/2023, 02/24/2023, 01/01/2022, Additional history exists Pneumococcal vaccine <65 Aged Out No longer eligible based on patient's age to complete this topic Procedures Procedure Name Priority Date/Time Associated Diagnosis [...] AM T: ??12/07/2023 10:08 AM Report ID: [id number] Reading Location: ??MAMMMHE Romero Velarde MD IMG MAMMO PROCEDURES Carmela l Result from Last 3 Months or Most Recently Relevant to Health Maintenance Insurance [facility] Care Teams Mess Attendant Crew Relationship Specialty Start Date End Date Gianluca Adams MD [address] [facility] [address] [place] [address] PCP - General Internal Medicine 11/20/22
--- OUTSIDE RECORDS SUMMARY | 2024-05-28 19:33 | XMS_ITS | Encounter Summary ---
Author Organization [facility] Healthcare Address [address] [place] [address] Care Team Providers Care Rn Relief Charge Name Role Phone Gianluca Adams MD Primary Care Provider [phone]- [phone] Reason for Referral * Diagnostic Imaging (Routine) - Closed Specialty Diagnoses / Procedures Referred By Contac t Referred To Contact Diagnoses Screening mammogram, encounter for Procedures Screening Mammogram Bilateral W Miguel A Screening Mammogram, Self Referral ID Status Reason Start Date Expiration Date Visits Re quested Visits Authorized [id number] Closed 11/20/2022 12/20/2023 1 1 * Diagnostic Imaging (Routine) - Closed Specialty Diagnoses / Procedures Referred By Contac t Referred To Contact Diagnoses Screening mammogram, encounter for Procedures Screening Mammogram Bilateral W Miguel A Screening Mammogram, Self Referral ID Status Reason Start Date Expiration Date Visits Re quested Visits Authorized [id number] Closed 11/20/2022 12/20/2023 1 1 Reason for Visit * Diagnostic Imaging (Routine) - Closed Specialty Diagnoses / Procedures Referred By Contac t Referred To Contact Diagnoses Screening mammogram, encounter for Procedures Screening Mammogram Bilateral W Miguel A Screening Mammogram, Self Referral ID Status Reason Start Date Expiration Date Visits Re quested Visits Authorized [id number] Closed 11/20/2022 12/20/2023 1 1 Encounter Details Date Type Department Care Team (Latest Contact Info) Description 02/24/2023 7:23 AM CDT - 02/24/2023 11:59 PM CDT Hospital Encounter [facility] Medical Office Bldg 1 Breast [facility] [address] [place] [address] Screening mammogram, encounter for Discharge Disposition: Discharge to home or self care Social History Tobacco Use Types Packs/Day Years Used Date Smoking Tobacco: Never Assessed Comments No Sex and Gender Information Value Date Recorded Sex Assigned at Not on file 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 Gender Identity Not on file Sexual Orientation Not on file documented as of this encounter Discharge Disposition Disposition Code Departure Means Destination Discharge to home or self care documented in this encounter Plan of Treatment Not on file documented as of this encounter Procedures Procedure Name Priority Date/Time Associated Diagnosis Comments SCREENING MAMMOGRAM BILATERAL W MIUGEL A Schedule Routine, Read Routine (OP Routine) 02/24/2023 7:48 AM CDT Screening mammogram, encounter for documented in this encounter Results * Screening Mammogram Bilateral W Miguel A (02/24/2023 7:48 AM CDT) Anatomical Region Laterality Modality Breast Bilateral Mammography Impressions 02/24/2023 8:31 AM CDT BI-RADS?? ATLAS category (overall): 2 - Benign There is no mammographic evidence of malignancy. A 1 year screening mammogram is recommended. The patient has been or will be contacted. We recommend annual screening mammography for women at average risk of breast cancer beginning at age 40, based on guidelines of the [place] [employer] (ACR Practice Parameter for the Performance of Screening and Diagnostic Mammography) and [place] [employer]. For women with and elevated risk of breast cancer, please refer to the ACR Practice Parameter for specific screening recommendations. The patient will be entered into a reminder system with a target due date of 1 year for her next screening exam. Narrative 02/24/2023 8:31 AM CDT Screening Mammogram Bilateral W Miguel A: 02/24/23 The study was acquired using full field digital technology and interpreted from soft copy. 2D digital mammographic views, as well as 3D digital tomosynthesis were performed in the CC and MLO projections. CLINICAL: ??Screening mammogram, encounter for. ??No relevant medical history has been documented for this patient. ??No known family history of breast cancer. COMPARISONS: 01/01/2022 Screening Mammogram Bilateral W Miguel A 11/08/2020 Screening Mammogram Bilateral W Miguel A [...] for documented in this encounter Care Teams Rn Relief Charge Relationship Specialty Start Date End Date Gianluca Adams MD [address] [address] PCP - General Internal Medicine 11/20/22 documented as of this encounter
--- OUTSIDE RECORDS SUMMARY | 2024-05-28 19:33 | XMS_ITS | Referral Summary ---
Author Organization [facility] Address [address] [place] [address] Care Team Providers Care Mobile Sales Expert Name Role Phone Sesar Ruth JEANETTE-CEMENT SACK BREAKER Primary Care Provider + Source Comments [facility] and Associated Physician Practices is amultiple site organization consisting of ambulatory clinics and hospital sitesin [place], [place], [place] and [place]. This disclosure is being madepursuant to the Care Everywhere program and may not contain all information available regarding this patient. Last updated 18.[facility] Allergies No known active allergies Medications * [...] PO Active Icosapent Ethyl (VASCEPA PO) Active Social History Tobacco Use Types Packs/Day Years [...] 03/05/2018 9:46 AM CDT Plan of Treatment Not on file Care Teams Mobile Sales Expert Relationship Specialty Start Date End Date Ruth Kaba APRN-CARSON [address] [place] [address] PCP - General 11/21/21
--- OUTSIDE RECORDS SUMMARY | 2024-05-28 19:33 | XMS_ITS | Encounter Summary ---
Author Organization [facility] Healthcare Address [address] [place] [address] Care Team Providers Care Wide Area Network Systems Administrator Name Role Phone Gianluca Admas MD Primary Care Provider [phone]- [phone] Reason for Visit * Diagnostic Imaging (Routine) - Pending Review Specialty Diagnoses / Procedures Referred By Talon flores Referred To Contact Diagnoses Mass of left breast, unspecified quadrant Procedures US Breast Left Limited US Breast Left Complete Romero Lee MD [address] [address] Phone: tel: fax: [address] [address] Referral ID Status Reason Start Date Expiration Date V isits Requested Visits Authorized [id number] Pending Review 12/04/2023 01/02/2025 1 1 Encounter Details Date Type Department Care Team (Latest Contact Info) Description 12/07/2023 8:55 AM CDT - 12/07/2023 11:59 PM CDT Hospital Encounter [facility] Medical Office Bl [facility] [address] [place] [address] [place] [id number] Mass of left breast, unspecified quadrant Discharge Disposition: Discharge to home or self care Social History Tobacco Use Types Packs/Day Years Used Date Smoking Tobacco: Never Assessed Comments No Sex and Gender Information Value Date Recorded Sex Assigned at Not on file 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 Gender Identity Not on file Sexual Orientation Not on file documented as of this encounter Discharge Disposition Disposition Code Departure Means Destination Discharge to home or self care documented in this encounter Plan of Treatment Not on file documented as of this encounter Procedures Procedure Name Priority Date/Time Associated Diagnosis Comments US BREAST LEFT LIMITED Schedule Routine, Read Routine (OP Routine) 12/07/2023 9:49 AM CDT Mass of left breast, unspecified quadrant documented in this encounter Results * US Breast Left Limited (12/07/2023 9:49 AM CDT) Anatomical Region Laterality Modality Breast Left Ultrasound 12/07/2023 10:0 4 AM CDT Narrative 12/07/2023 10:08 AM CDT EXAM DESCRIPTION: ?? US BREAST LEFT LIMITED; DIAGNOSTIC MAMMOGRAM BILATERAL W MICHAEL REASON FOR STUDY: 63-year-old woman comes in [...] AM T: ??12/07/2023 10:08 AM Report ID: [id number] Reading Location: ??MAMMMHE us Romero Velarde MD IMG MAMMO PROCEDURES Carmela l Result documented in this encounter Visit Diagnoses Diagnosis Mass of left breast, unspecified quadrant documented in this encounter Care Teams Wide Area Network Systems Administrator Relationship Specialty Start Date End Date Gianluca Adams MD [address] [facility] [address] [place] [address] PCP - General Internal Medicine 11/20/22 documented as of this encounter
--- OUTSIDE RECORDS SUMMARY | 2024-05-28 19:34 | XMS_ITS | Encounter Summary ---
Author Organization [facility] Healthcare Address [address] [place] [address] Care Team Providers Care Tacking Stitch Remover Name Role Phone Ruth Kaba NP Primary Care Provider [phone] Encounter Details Date Type Department Care Team (Late st Contact Info) Description 06/04/2019 8:10 AM 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 Hospital Encounter [facility] Ruth Kaba NP [address] [place] [address] Social History Tobacco Use Types Packs/Day Years Used Date Smoking Tobacco: Never Assessed Comments Unknown Sex and Gender Information Value Date Recorded Sex Assigned at Not on file Legal Sex 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:23 PM 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 Gender Identity Not on file Sexual Orientation Not on file documented as of this encounter Plan of Treatment Not on file documented as of this encounter Procedures Procedure Name Priority Date/Time Associated Diagnosis Comments GENERAL RADIOLOGY REPORT 06/06/2019 12:00 AM 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 SCREENING MAMMOGRAM BILATERAL W MIGUEL A 06/04/2019 8:13 AM 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 documented in this encounter Results * GENERAL RADIOLOGY REPORT (06/06/2019 12:00 AM 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) Anatomical Region Laterality Modality Radiographic Dyana ging Narrative 06/06/2019 12:00 AM 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 Ordered by an unspecified provider. us Historical Provider MD RIZVI XR PROCEDURES Final R esult * Screening Mammogram Bilateral W Miguel A (06/04/2019 8:13 AM 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) Anatomical Region Laterality Modality Breast Bilateral Mammography 06/04/2019 8:24 AM 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 Narrative 06/06/2019 8:42 AM 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 Patient Name: STANLEY SMITH ?Ordering Dr: Ruth Kaba ANP ?? D.O.B: 1960 ? Exam Date: 06/04/19 ?? 812 ?? Age: 58 ?Sex: Female ? MR#: [id number] ?? Loc: ? RADIOLOGY REPORT ?? Order #[id number] ?? [facility] ? Stephy Bilat Screening 3D ? Signed ?- MG ?? BILATERAL DIGITAL SCREENING MAMMOGRAM 3D/2D WITH MEDIOLATERAL OBLIQUE ?? CRANIOCAUDAL: 06/04/2019 ?? The study was acquired using full field digital technology and interpreted from ?soft copy. ?2D digital mammographic views, as well as 3D digital tomosynthesis were ?? performed in the CC and MLO projections. ? CLINICAL: Routine mammogram. Denies any problems today. No personal history of ?? breast cancer. No family history of breast cancer. ? COMPARISONS: Comparison is made to exams dated: ??04/17/2018 mammogram - ?? [facility] and 01/17/2017 mammogram - [facility], [place]. ? BREAST TISSUE: There are scattered areas of fibroglandular density. ? FINDINGS: There are benign calcifications in both breasts. ? No significant masses, calcifications, or other findings are seen in either ?? breast. ? There has been no significant interval change. ? IMPRESSION: BI-RAD 2 ??BENIGN ?? There is no mammographic evidence of malignancy. A 1 year screening mammogram ?? is recommended. ? The patient has been or will be contacted. ? We recommend annual screening mammography for women at average risk of breast ?? cancer beginning at age 40, based on guidelines of the [employer] ?? [employer] (ACR Practice Parameter for the Performance of Screening and ?? Diagnostic Mammography) and [employer] and ?? Gynecologists. For women with an elevated risk of breast cancer, please refer ?? to the ACR Practice Parameter for specific screening recommendations. ? The patient will be entered into a reminder system with a target due date of 1 ?? year for her next screening exam. ? Electronically signed by: ?Charles Vaughn ? rl/penrad:06/06/2019 08:42:08 ? Paper Colorer: Yashira GUTIERREZ)(Sabrina), [facility] ?? letter sent: Normal Exam ? Reading location: ?? BI-RADS: 2 Benign ? REPORT ELECTRONICALLY SIGNED IN OTHER VENDOR SYSTEM ?? Resulting Agency Comment O Procedure Note Charles Page MD - 06/06/2019 Patient Name: STANLEY SMITH Dr: Ruth Kaba D.O.B: 1960 Exam Date: 06/04/19812 Age: 58 Sex: Female MR#: [id number] Loc: RADIOLOGY REPORT Order #[id number] [facility] Stephy Bilat Screening 3D Signed - MG BILATERAL DIGITAL SCREENING MAMMOGRAM 3D/2D WITH MEDIOLATERAL OBLIQUE CRANIOCAUDAL: 06/04/2019 The study was acquired using full field digital technology andinterpreted from soft copy. 2D digital mammographic views, as well as 3D digital tomosynthesis were performed in the CC and MLO projections. CLINICAL: Routine mammogram. Denies any problems today. No personalhistory of breast cancer. No family history of breast cancer. COMPARISONS: Comparison is made to exams dated: 04/17/2018 mammogram - [facility] and 01/17/2017 mammogram - [facility], [place]. BREAST TISSUE: There are scattered areas of fibroglandular density. FINDINGS: There are benign calcifications in both breasts. No significant masses, calcifications, or other findings are seen ineither breast. There has been no significant interval change. IMPRESSION: BI-RAD 2 BENIGN There is no mammographic evidence of malignancy. A 1 year screeningmammogram is recommended. The patient has been or will be contacted. We recommend annual screening mammography for women at average risk ofbreast cancer beginning at age 40, based on guidelines of the [employer] (ACR Practice Parameter for the Performance of Screening and Diagnostic Mammography) and [employer]. For women with an elevated risk of breast cancer, pleaserefer to the ACR Practice Parameter for specific screening recommendations. The patient will be entered into a reminder system with a target due dateof 1 year for her next screening exam. Electronically signed by: Charles donovan/angel:06/06/2019 08:42:08 Paper Colorer: Yashira GUTIERREZ)(Sabrina), [facility] letter sent: Normal Exam Reading location: BI-RADS: 2 Benign REPORT ELECTRONICALLY SIGNED IN OTHER VENDOR SYSTEM us Ruth Kaba NP IMG MAMMO PROCEDURES Final Res ult documented in this encounter Visit Diagnoses Not on filedocumented in this encounter Care Teams Tacking Stitch Remover Relationship Specialty Start Date End Date Ruth Kaba NP PCP - General 04/20/19 11/19/22 documented as of this encounter
--- OUTSIDE RECORDS SUMMARY | 2024-05-28 19:34 | XMS_ITS | Encounter Summary ---
Author Organization [facility] Healthcare Address [address] [place] [address] Care Team Providers Care Party Director Name Role Phone Unavailable Primary Care Provider Unavailabl e Encounter Details Date Type Department Care Team (Latest Contact Info) Description 12/21/2015 7:44 AM CDT Hospital Encounter [facility] Romero Lee MD [address] [place] [phone] Encounter for screening mammogram for malignant neoplasm of breast Social History Tobacco Use Types Packs/Day Years Used Date Smoking Tobacco: Never Assessed Comments Unknown Sex and Gender Information Value Date Recorded Sex Assigned at Not on file 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 Gender Identity Not on file Sexual Orientation Not on file documented as of this encounter Plan of Treatment Not on file documented as of this encounter Procedures Procedure Name Priority Date/Time Associated Diagnosis Comments SCREENING MAMMOGRAM BILATERAL W MIGUEL A Routine 12/21/2015 7:45 AM CDT GENERAL RADIOLOGY REPORT 12/21/2015 12:00 AM CDT documented in this encounter Results * Screening Mammogram Bilateral W Miguel A (12/21/2015 7:45 AM CDT) Anatomical Region Laterality Modality Breast Bilateral Mammography 12/21/2015 7:45 AM CDT Impressions 12/21/2015 8:23 AM CDT BI-RAD 2 ??BENIGN There is no mammographic evidence of malignancy. A 1 year screening mammogram is recommended. ?? The patient has been or will be contacted. ?? The patient will be entered into a reminder system with a target due date of 1 year for her next screening exam. Electronically signed by: Zenon leija/angel:12/21/2015 08:23:04 ?? Flat Spring Assembler: Samantha DAN(Lawrence)(Sabrina), [facility] letter sent: Normal Exam ?? Reading location: BI-RADS: 2 Benign [EOD] Narrative 12/21/2015 8:23 AM CDT - MG BILATERAL DIGITAL SCREENING MAMMOGRAM 3D/2D WITH CAD WITH MEDIOLATERAL OBLIQUE CRANIOCAUDAL: 12/21/2015 The study was acquired using full field digital technology and interpreted from soft copy. ?? Current study was also evaluated with R2 CAD. 2D digital mammographic views, as well as 3D digital tomosynthesis were performed in the CC and MLO projections. CLINICAL: Routine mammogram. Denies any problems today. No personal history of breast cancer. No family history of breast cancer. ?? COMPARISONS: Comparison is made to exams dated: ??12/08/2014 mammogram, 12/07/2013 mammogram - [facility], and 11/19/2012 mammogram - [facility]. BREAST TISSUE: There are scattered areas of fibroglandular density. ?? FINDINGS: There are benign calcifications in both breasts. ??There also is a benign mass in the left breast. ?? No significant masses, calcifications, or other findings are seen in either breast. ?? There has been no significant interval change. Procedure Note Provider, MD Travis - 10/24/2020 - MG BILATERAL DIGITAL SCREENING MAMMOGRAM 3D/2D WITH CAD WITH MEDIOLATERALOBLIQUE CRANIOCAUDAL: 12/21/2015 The study was acquired using full field digital technology and interpretedfrom soft copy. Current study was also evaluated with R2 CAD. 2D digital mammographic views, as well as 3D digital tomosynthesis were performed in the CC and MLO projections. CLINICAL: Routine mammogram. Denies any problems today. No personalhistory of breast cancer. No family history of breast cancer. COMPARISONS: Comparison is made to exams dated: 12/08/2014 mammogram,12/07/2013 mammogram - [facility], and 11/19/2012 mammogram - [facility]. BREAST TISSUE: There are scattered areas of fibroglandular density. FINDINGS: There are benign calcifications in both breasts. There also bolivar benign mass in the left breast. No significant masses, calcifications, or other findings are seen ineither breast. There has been no significant interval change. IMPRESSION: BI-RAD 2 BENIGN There is no mammographic evidence of malignancy. A 1 year screeningmammogram is recommended. The patient has been or will be contacted. The patient will be entered into a reminder system with a target due dateof 1 year for her next screening exam. Electronically signed by: Zenon leija/penrad:12/21/2015 08:23:04 Flat Spring Assembler: Samantha DAN(Lawrence)(M), [facility] letter sent: Normal Exam Reading location: BI-RADS: 2 Benign [EOD] us Romero RIZVI MAMMO PROCEDURES Carmela l Result * GENERAL RADIOLOGY REPORT (12/21/2015 12:00 AM CDT) Anatomical Region Laterality Modality Radiographic Dyana ging Narrative 12/21/2015 12:00 AM CDT Ordered by an unspecified provider. us Historical Provider MD RIZVI XR PROCEDURES Final R esult documented in this encounter Visit Diagnoses Diagnosis Encounter for screening mammogram for malignant neoplasm of breast documented in this encounter
--- OUTSIDE RECORDS SUMMARY | 2024-05-28 19:34 | XMS_ITS | Encounter Summary ---
Author Organization [facility] Healthcare Address [address] [place] [address] Care Team Providers Care Wader Boot Top Assembler Name Role Phone Unavailable Primary Care Provider Unavailabl e Encounter Details Date Type Department Care Team (Latest Contact Info) Description 12/07/2013 10:31 AM CDT Hospital Encounter [facility] Romero Lee MD [address] [place] [phone] Other screening mammogram Social History Tobacco Use Types Packs/Day Years Used Date Smoking Tobacco: Never Assessed Comments Unknown Sex and Gender Information Value Date Recorded Sex Assigned at Not on file 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 No mammographic evidence of malignancy. ??Benign findings as above. ??Recommend routine annual screening mammography. ASSESSMENT: ??BIRADS: 2 - benign findings A letter will be mailed to the patient with the results and recommendations. The patient will be entered into a reminder system for an annual screening mammogram in 1 year. THIS IS AN ELECTRONICALLY VERIFIED REPORT 12/07/2013 11:41 AM: ??Liban Archer M.D. Liban Archer M.D. MD: 11:41 AM 11:41 AM [facility] [EOD] Narrative 12/07/2013 11:45 AM CDT EXAMINATION: ??Bilateral screening mammography HISTORY: ??Routine screening mammogram. COMPARISON: ??11/19/2012, 04/26/2011, 04/20/2010, 12/16/2007, 11/29/2007 TECHNIQUE: ??Bilateral digital full field of view mammography was performed, with the aid of computer aided detection (CAD). FINDINGS: ??The breasts are composed of scattered fatty and fibroglandular tissue. ??An isodense mass within the superior left breast (middle depth) has decreased in size since 2010. ??This was shown to represent a benign cyst on prior left breast ultrasound dated 12/16/2007. ??No significant mass, microcalcifications, or other findings are seen. ??No suspicious interval change is identified relative to the prior studies. Procedure Note Provider, MD Travis - 10/24/2020 EXAMINATION: Bilateral screening mammography HISTORY: Routine screening mammogram. COMPARISON: 11/19/2012, 04/26/2011, 04/20/2010, 12/16/2007, 11/29/2007 TECHNIQUE: Bilateral digital full field of view mammography wasperformed, with the aid of computer aided detection (CAD). FINDINGS: The breasts are composed of scattered fatty and fibroglandular tissue. An isodense mass within the superior left breast (middle depth)has decreased in size since 2010. This was shown to represent a benign cyston prior left breast ultrasound dated 12/16/2007. No significant mass, microcalcifications, or other findings are seen. No suspicious interval change is identified relative to the prior studies. IMPRESSION: No mammographic evidence of malignancy. Benign findings as above.Recommend routine annual screening mammography. ASSESSMENT: BIRADS: 2 - benign findings A letter will be mailed to the patient with the results andrecommendations. The patient will be entered into a reminder system for an annual screening mammogram in 1 year. THIS IS AN ELECTRONICALLY VERIFIED REPORT 12/07/2013 11:41 AM: Liban Archer M.D. Liban Archer M.D. MD: 11:41 AM 11:41 AM [facility] [EOD] Romero TAYG MAMMO PROCEDURES Carmela l Result * GENERAL RADIOLOGY REPORT (12/07/2013 12:00 AM CDT) Anatomical Region Laterality Modality Radiographic Dyana ging Narrative 12/07/2013 12:00 AM CDT Ordered by an unspecified provider. us Historical Provider MD RIZVI XR PROCEDURES Final R esult documented in this encounter Visit Diagnoses Diagnosis Other screening mammogram documented in this encounter
--- OUTSIDE RECORDS SUMMARY | 2024-05-28 19:34 | XMS_ITS | Encounter Summary ---
Author Organization [facility] Healthcare Address [address] [place] [address] Care Team Providers Care Baling Machine Operator Name Role Phone Unavailable Primary Care Provider Unavailabl e Encounter Details Date Type Department Care Team (Latest Contact Info) Description 01/17/2017 7:43 AM CDT Hospital Encounter [facility] Romero Lee MD [address] [place] [phone] Encounter for screening mammogram for malignant neoplasm of breast Social History Tobacco Use Types Packs/Day Years Used Date Smoking Tobacco: Never Assessed Comments Unknown Sex and Gender Information Value Date Recorded Sex Assigned at Not on file 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 us Historical Provider MD RIZVI XR PROCEDURES Final R esult * Screening Mammogram Bilateral W Miguel A (01/17/2017 7:47 AM CDT) Anatomical Region Laterality Modality Breast Bilateral Mammography 01/17/2017 7:47 AM CDT Impressions 01/19/2017 8:45 AM CDT BI-RAD 2 ??BENIGN There is no mammographic evidence of malignancy. A 1 year screening mammogram is recommended. ?? The patient has been or will be contacted. ?? The patient will be entered into a reminder system with a target due date of 1 year for her next screening exam. Electronically signed by: Zenon leija/penrad:01/19/2017 08:44:02 ?? Burial Agent: Martina DAN(R)(M), [facility] letter sent: Normal Exam ?? Reading location: BI-RADS: 2 Benign [EOD] Narrative 01/19/2017 8:45 AM CDT - MG BILATERAL DIGITAL SCREENING MAMMOGRAM 3D/2D WITH MEDIOLATERAL OBLIQUE CRANIOCAUDAL: 01/17/2017 The study was acquired using full field digital technology and interpreted from soft copy. ?? 2D digital mammographic views, as well as 3D digital tomosynthesis were performed in the CC and MLO projections. CLINICAL: Routine mammogram. Denies any problems today. No personal history of breast cancer. No family history of breast cancer. ?? COMPARISONS: Comparison is made to exams dated: ??12/21/2015 mammogram, 12/08/2014 mammogram, and 12/07/2013 mammogram - [facility]. ?? BREAST TISSUE: There are scattered areas of [...] SCREENING MAMMOGRAM 3D/2D WITH MEDIOLATERAL OBLIQUE CRANIOCAUDAL: 01/17/2017 The study was acquired using full field digital technology and interpretedfrom soft copy. 2D digital mammographic views, as well as 3D digital tomosynthesis were performed in the CC and MLO projections. CLINICAL: Routine mammogram. Denies any problems today. No personalhistory of breast cancer. No family history of breast cancer. COMPARISONS: Comparison is made to exams dated: 12/21/2015 mammogram,12/08/2014 mammogram, and 12/07/2013 mammogram - [facility]. BREAST TISSUE: There are scattered areas [...] next screening exam. Electronically signed by: Zenon leija/angel:01/19/2017 08:44:02 Burial Agent: Martina Bethea RT(R)(M), [facility] letter sent: Normal Exam Reading location: BI-RADS: 2 Benign [EOD] us Romero Velarde MD IMG MAMMO PROCEDURES Carmela l Result documented in this encounter Visit Diagnoses Diagnosis Encounter for screening mammogram for malignant neoplasm of breast documented in this encounter
--- OUTSIDE RECORDS SUMMARY | 2024-05-28 19:34 | XMS_ITS | Encounter Summary ---
Author Organization [facility] Healthcare Address [address] [place] [address] Care Team Providers Care Engineering Inspector Name Role Phone Unavailable Primary Care Provider Unavailabl e Encounter Details Date Type Department Care Team (Latest Contact Info) Description 11/19/2012 9:00 AM CDT Hospital Encounter [facility] Oneyda Armenta MD [address] [address] Other screening mammogram Social History Tobacco Use Types Packs/Day Years Used Date Smoking Tobacco: Never Assessed Comments Unknown Sex and Gender Information Value Date Recorded Sex Assigned at Not on file 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 us Historical Provider MD RIZVI XR PROCEDURES Final R esult * Screening Mammogram 2D Bilateral (11/19/2012 9:45 AM CDT) Anatomical Region Laterality Modality Breast Bilateral Mammography 11/19/2012 9:45 AM CDT Impressions 12/03/2012 6:05 PM CDT ?? Benign findings. ??No mammographic evidence of malignancy. ??Recommend routine annual screening mammography. ASSESSMENT: ??BIRADS: 2 - benign findingsA letter will be mailed to the patient with the results and recommendations. THIS IS AN ELECTRONICALLY VERIFIED REPORT 12/03/2012 5:37 PM: ??Shilpa Jay M.D. Shilpa Jay M.D. KL:aj 12:10 PM 07:25 AM [EOD] Narrative 12/03/2012 6:05 PM CDT EXAMINATION: ??Bilateral screening mammography HISTORY: Routine screening mammogram. COMPARISON: ??Prior mammograms 04/26/11 and 04/20/10. TECHNIQUE: ??Bilateral digital full field of view mammography was performed, with the aid of computer aided detection (CAD). FINDINGS: ??The breasts are composed of heterogeneously dense tissue, which may limit the sensitivity of mammography. A hypodense mass in the left superior breast at a middle depth appears decreased in size since 2009, most consistent with benignity. No significant mass, new cluster of microcalcifications, or other findings are seen. Procedure Note Provider, MD Travis - 10/24/2020 EXAMINATION: Bilateral screening mammography HISTORY: Routine screening mammogram. COMPARISON: Prior mammograms 04/26/11 and 04/20/10. TECHNIQUE: Bilateral digital full field of view mammography wasperformed, with the aid of computer aided detection (CAD). FINDINGS: The breasts are composed of heterogeneously dense tissue, whichmay limit the sensitivity of mammography. A hypodense mass in the leftsuperior breast at a middle depth appears decreased in size since 2009, mostconsistent with benignity. No significant mass, new cluster of microcalcifications,or other findings are seen. IMPRESSION: Benign findings. No mammographic evidence of malignancy. Recommendroutine annual screening mammography. ASSESSMENT: BIRADS: 2 - benign findingsA letter will be mailed to thepatient with the results and recommendations. THIS IS AN ELECTRONICALLY VERIFIED REPORT 12/03/2012 5:37 PM: Shilpa Jay M.D. Shilpa Jay M.D. KL:aj 12:10 PM 07:25 AM [EOD] Oneyda Armenta MD IMG MAMMO PROCEDURES Carmela l Result documented in this encounter Visit Diagnoses Diagnosis Other screening mammogram documented in this encounter
--- OUTSIDE RECORDS SUMMARY | 2024-05-28 19:34 | XMS_ITS | Encounter Summary ---
Author Organization [facility] Healthcare Address [address] [place] [address] Care Team Providers Care Financial Analyst Intern Name Role Phone Unavailable Primary Care Provider Unavailabl e Encounter Details Date Type Department Care Team (Latest Contact Info) Description 12/08/2014 6:49 AM CDT Hospital Encounter [facility] Romero Lee MD [address] [place] [id number] Other screening mammogram Social History Tobacco Use Types Packs/Day Years Used Date Smoking Tobacco: Never Assessed Comments Unknown Sex and Gender Information Value Date Recorded Sex Assigned at Not on file 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 Gender Identity Not on file Sexual Orientation Not on file documented as of this encounter Plan of Treatment Not on file documented as of this encounter Procedures Procedure Name Priority Date/Time Associated Diagnosis Comments SCREENING MAMMOGRAM BILATERAL W MIGUEL A Routine 12/08/2014 6:50 AM CDT GENERAL RADIOLOGY REPORT 12/08/2014 12:00 AM CDT documented in this encounter Results * Screening Mammogram Bilateral W Miguel A (12/08/2014 6:50 AM CDT) Anatomical Region Laterality Modality Breast Bilateral Mammography 12/08/2014 6:50 AM CDT Impressions 12/08/2014 8:34 AM CDT BIRADS 2: ??BENIGN There is no mammographic evidence of malignancy. A 1 year screening mammogram is recommended. ?? The patient has been or will be contacted. ?? The patient will be entered into an automated reminder system to schedule a mammogram in one year. Electronically signed by: Liban Archer md/:12/08/2014 08:32:09 ?? Legal Executive: Ayala Tay)(Sabrina), [facility] letter sent: Normal Exam ?? Reading location: BI-RADS: 2 Benign [EOD] Narrative 12/08/2014 8:34 AM CDT - [facility] BILAT SCREENING 3D W/CAD BILATERAL DIGITAL SCREENING MAMMOGRAM 3D/2D WITH CAD WITH MEDIOLATERAL OBLIQUE CRANIOCAUDAL: 12/08/2014 The study was acquired using full field digital technology and interpreted from soft copy. ?? Current study was also evaluated with ICAD version 7.2. CLINICAL: Routine mammogram. ??Patient denies any problems today. ??No personal or family history of breast cancer. ?? COMPARISONS: Comparison is made to exams dated: ??12/07/2013 mammogram - [facility], 11/19/2012 mammogram - [facility], 04/26/2011 ??[facility], and 04/20/2010 ??[facility]. ?? BREAST TISSUE: There are scattered areas of fibroglandular density. ?? FINDINGS: ??An oval mass within the left breast at 11-12 o'clock (middle depth) has decreased in size since 04/26/2011, consistent with a benign entity (probably a cyst). ??Benign-appearing calcifications are present within each breast. No significant masses, calcifications, or other findings are seen in either breast. ??There has been no significant interval change. Procedure Note Provider, MD Travis - 10/24/2020 - [facility] BILAT SCREENING 3D W/CAD BILATERAL DIGITAL SCREENING MAMMOGRAM 3D/2D WITH CAD WITH MEDIOLATERALOBLIQUE CRANIOCAUDAL: 12/08/2014 The study was acquired using full field digital technology and interpretedfrom soft copy. Current study was also evaluated with ICAD version 7.2. CLINICAL: Routine mammogram. Patient denies any problems today. Nopersonal or family history of breast cancer. COMPARISONS: Comparison is made to exams dated: 12/07/2013 mammogram -[facility], 11/19/2012 mammogram - [facility], 04/26/2011 [facility], and 04/20/2010 [facility]. BREAST TISSUE: There are scattered areas of fibroglandular density. FINDINGS: An oval mass within the left breast at 11-12 o'clock (middledepth) has decreased in size since 04/26/2011, consistent with a benign entity (probably a cyst). Benign-appearing calcifications are present withineach breast. No significant masses, calcifications, or other findings are seen ineither breast. There has been no significant interval change. IMPRESSION: BIRADS 2: BENIGN There is no mammographic evidence of malignancy. A 1 year screeningmammogram is recommended. The patient has been or will be contacted. The patient will be entered into an automated reminder system to schedulea mammogram in one year. Electronically signed by: Liban Archer md/:12/08/2014 08:32:09 Legal Executive: Ayala DAN (R)(M), [facility] letter sent: Normal Exam Reading location: BI-RADS: 2 Benign [EOD] us Romero Velarde MD IMG MAMMO PROCEDURES Carmela l Result * GENERAL RADIOLOGY REPORT (12/08/2014 12:00 AM CDT) Anatomical Region Laterality Modality Radiographic Dyana ging Narrative 12/08/2014 12:00 AM CDT Ordered by an unspecified provider. us Historical Provider MD RIZVI XR PROCEDURES Final R esult documented in this encounter Visit Diagnoses Diagnosis Other screening mammogram documented in this encounter
--- OUTSIDE RECORDS SUMMARY | 2024-05-28 19:34 | XMS_ITS | Encounter Summary ---
Author Organization [facility] Healthcare Address [address] [place] [address] Care Team Providers Care Glaze Wiper Name Role Phone Unavailable Primary Care Provider Unavailabl e Encounter Details Date Type Department Care Team (Latest Contact Info) Description 04/17/2018 9:35 AM CHEMICAL EQUIPMENT SALES ENGINEER Hospital Encounter [facility] Romero Lee MD [address] [address] Encounter for screening mammogram for malignant neoplasm of breast Social History Tobacco Use Types Packs/Day Years Used Date Smoking Tobacco: Never Assessed Comments Unknown Sex and Gender Information Value Date Recorded Sex Assigned at Not on file 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 Gender Identity Not on file Sexual Orientation Not on file documented as of this encounter Plan of Treatment Not on file documented as of this encounter Procedures Procedure Name Priority Date/Time Associated Diagnosis Comments GENERAL RADIOLOGY REPORT 04/19/2018 12:00 AM CHEMICAL EQUIPMENT SALES ENGINEER SCREENING MAMMOGRAM BILATERAL W MIGUEL A Routine 04/17/2018 9:37 AM CHEMICAL EQUIPMENT SALES ENGINEER documented in this encounter Results * GENERAL RADIOLOGY REPORT (04/19/2018 12:00 AM CHEMICAL EQUIPMENT SALES ENGINEER) Anatomical Region Laterality Modality Radiographic Dyana ging Narrative 04/19/2018 12:00 AM CHEMICAL EQUIPMENT SALES ENGINEER Ordered by an unspecified provider. us Historical Provider MD RIZVI XR PROCEDURES Final R esult * Screening Mammogram Bilateral W Miguel A (04/17/2018 9:37 AM CHEMICAL EQUIPMENT SALES ENGINEER) Anatomical Region Laterality Modality Breast Bilateral Mammography 04/17/2018 9:37 AM CHEMICAL EQUIPMENT SALES ENGINEER Impressions 04/19/2018 9:39 AM CHEMICAL EQUIPMENT SALES ENGINEER BI-RAD 2 ??BENIGN There is no mammographic evidence of malignancy. A 1 year screening mammogram is recommended. ?? The patient has been or will be contacted. ?? The patient will be entered into a reminder system with a target due date of 1 year for her next screening exam. Electronically signed by: Dr. Kwadwo Medley M.D. nh/:04/19/2018 09:38:17 ?? Dining Host: Martina GUTIERREZ)(M), [facility] letter sent: Normal Exam ?? Reading location: [facility] BI-RADS: 2 Benign [EOD] Narrative 04/19/2018 9:39 AM CHEMICAL EQUIPMENT SALES ENGINEER - MG BILATERAL DIGITAL SCREENING MAMMOGRAM 3D/2D WITH MEDIOLATERAL OBLIQUE CRANIOCAUDAL: 04/17/2018 The study was acquired using full field digital technology and interpreted from soft copy. ?? 2D digital mammographic views, as well as 3D digital tomosynthesis were performed in the CC and MLO projections. CLINICAL: Routine mammogram. Denies any problems today. No personal history of breast cancer. No family history of breast cancer. ?? COMPARISONS: Comparison is made to exams dated: ??01/17/2017 mammogram and 12/21/2015 mammogram - [facility]. ?? BREAST TISSUE: There are scattered areas of fibroglandular density. ?? FINDINGS: There are benign calcifications in both breasts. ??There also is a stable benign mass in the left breast. ?? No significant masses, calcifications, or other findings are seen in either breast. ?? There has been no significant interval change. Procedure Note Provider, MD Travis - 10/24/2020 - [facility] BILATERAL DIGITAL SCREENING MAMMOGRAM 3D/2D WITH MEDIOLATERAL OBLIQUE CRANIOCAUDAL: 04/17/2018 The study was acquired using full field digital technology and interpretedfrom soft copy. 2D digital mammographic views, as well as 3D digital tomosynthesis were performed in the CC and MLO projections. CLINICAL: Routine mammogram. Denies any problems today. No personalhistory of breast cancer. No family history of breast cancer. COMPARISONS: Comparison is made to exams dated: 01/17/2017 mammogram and 12/21/2015 mammogram - [facility]. BREAST TISSUE: There are scattered areas of fibroglandular density. FINDINGS: There are benign calcifications in both breasts. There also bolivar stable benign mass in the left breast. No [...] her next screening exam. Electronically signed by: Dr. Kwadwo Medley M.D. nh/:04/19/2018 09:38:17 Dining Host: Martina GUTIERREZ)(Sabrina), [facility] letter sent: Normal Exam Reading location: [facility] BI-RADS: 2 Benign [EOD] us Romero Velarde MD IMG MAMMO PROCEDURES Carmela l Result documented in this encounter Visit Diagnoses Diagnosis Encounter for screening mammogram for malignant neoplasm of breast documented in this encounter
== END 2024-05-23 07:36 | disposition home or self-care (01) ==
PROVIDERS: PCP Internal Medicine; Visit Provider Nurse Practitioner Family
DX: K80.20 Calculus of gallbladder without cholecystitis without obstruction (principal)
CPT/HCPCS: 78226; A9537

== ENCOUNTER 2024-07-05 09:24 | Outpatient (CLI) | payer OTHER, SELFPAY ==
--- NOTE | 2024-07-05 09:30 | ECG_ITS ---
Test Date: 2024-07-05 09:57:03 Measurements Intervals [place] Rate: 76 P: 64 ND: 170 QRS: -32 QRSD: 101 T: 10 QT: 360 QTc: 406 Interpretive Statements SINUS RHYTHM MARKED LEFT AXIS DEVIATION [QRS AXIS < -30] No previous ECG available for comparison Electronically Signed On 07-05-2024 16:18:07 ANIMAL DOCTOR by Royce Charles M.D.
--- OUTSIDE RECORDS SUMMARY | 2024-07-05 10:00 | XMS_ITS | Referral Summary ---
Author Organization [facility] [employer] Address [address] [place] [address] Care Team Providers Care Tunneller Name Role Phone Sesar Ruth JEANETTE-FIRE EXTINGUISHER REPAIRER Primary Care Provider + Source Comments [facility],non-Critical access hospitalates and Associated Physician Practices is amultiple site organization consisting of ambulatory clinics and hospital sitesin [place], [place]. This disclosure is being madepursuant to the Care Everywhere program and may not contain all information available regarding this patient. Last updated 18.[facility] Allergies No known active allergies Medications * [...] of Treatment Not on file Care Teams Tunneller Relationship Specialty Start Date End Date Ruth Kaba APRN-CARSON [address] [place] [address] PCP - General 11/21/21
--- OUTSIDE RECORDS SUMMARY | 2024-07-05 10:00 | XMS_ITS | Clinical Summary ---
Author Organization [facility] [employer] Address [address] [place] [address] Care Team Providers Care Computer Numerical Control Operator Name Role Phone Ruth Kaba JEANETTE-INSPECTOR WATCH TRAIN Primary Care Provider + Source Comments [facility] and Associated Physician Practices is amultiple site organization consisting of ambulatory clinics and hospital sitesin [place], [place], [place] and [place]. This disclosure is being madepursuant to the Care Everywhere program and may not contain all information available regarding this patient. Last updated 18.[facility] [employer] Allergies No known active allergies Medications * [...] TESTING 1960 MAMMOGRAM 1960 PAP SMEAR 1960 HIV SCREENING 09/11/1975 HEPATITIS C SCREENING 09/06/1978 DTAP/TDAP/TD VACCINES (1 - Tdap) 09/11/1979 PNEUMOCOCCAL VACCINE 50+ (1 of 2 - PCV) 09/11/1979 PNEUMOCOCCAL VACCINE (1 of 2 - PCV) 09/11/1979 ZOSTER VACCINE (1 of 2) 2010 SCREENING FOR DIABETES 03/05/2018 COVID-19 VACCINE ( - 2023-2 5 season) 2024 INFLUENZA VACCINE (#1) 2024 DEPRESSION SCREENING 06/08/2024 Respiratory Syncytial Virus (RSV) Vaccine Pt: or [...] patient's age to complete this topic MENINGOCOCCAL (Group B) VACCINE Aged Out No longer eligible based on patient's age to complete this topic MENINGOCOCCAL VACCINE Aged Out No nya nelia eligible based on patient's age to complete this topic Care Teams Computer Numerical Control Operator Relationship Specialty Start Date End Date Ruth Kaba APRN-CARSON [address] [place] [id number] PCP - General 11/21/21
--- OUTSIDE RECORDS SUMMARY | 2024-07-05 10:00 | XMS_ITS | Clinical Summary ---
Author Organization [facility] Address [address] [place] [address]. [place] [address] [place] [address] Care Team Providers Care Carpenter Railcar Name Role Phone Unavailable Primary Care Provider [...] Vaccines (1 of 2) 2010 COVID-19 Vaccine (2023-2 5 season) 2024 Influenza Adult (#1) 2024 RSV Immunization or 60+ Years (1 - 1-dose 75+ series) 09/11/2035 Meningococcal B Vaccine Aged Out No l onger eligible based on patient's age to complete this topic Meningococcal Vaccine Aged Out No nya nelia [...]
--- OUTSIDE RECORDS SUMMARY | 2024-07-05 10:00 | XMS_ITS | Clinical Summary ---
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 Gender Identity Not on file Sexual Orientation Not on file Obstetrics History Para Term AB IAB SAB Ectopic Multiple Livin g Live Births 2 2 2 Date Outcome GA Total Labor Labor/2nd/3rd Weight Sex Type Anes PTL Liyl A1 A5 Name Clin Term Term Plan [...] AM T: ??12/07/2023 10:08 AM Report ID: [id number] Reading Location: ??MAMMMHE Romero Velarde MD IMG MAMMO PROCEDURES Carmela l Result from Last 3 Months or Most Recently Relevant to Health Maintenance Insurance [facility] Care Teams Mixer Driver Relationship Specialty Start Date End Date Gianluca Adams MD [address] [facility] [address] [place] [address] PCP - General Internal Medicine 11/20/22
--- OUTSIDE RECORDS SUMMARY | 2024-07-05 10:00 | XMS_ITS | Patient Health Summary ---
Author Organization [facility] Address [address] [place] [address] Care Team Providers Care Sheet Metal Shop Supervisor Name Role Phone Sesar Ruth JEANETTE-RAFTSMAN Primary Care Provider + Note from [facility],non-owned Affiliates and Associated Physician Practices is amultiple site organization consisting of ambulatory clinics and hospital sitesin [place], [place] and [place]. This disclosure is being madepursuant to the Care Everywhere program and may not contain all information available regarding this patient. Last updated 18.[facility] Allergies No known active allergies Medications * [...] Strep A Internal Control Present Lot # [id number] Expiration Date Throat ENTIRE THROAT (SURFACE REGION OF NECK) / Unknown 03/05/2018 Sol [facility] - POINT OF CARE ORDERABLES Care Teams Sheet Metal Shop Supervisor Relationship Specialty Start Date End Date Ruth Kaba APRN-CNP [address] [address] PCP - General 11/21/21
--- OUTSIDE RECORDS SUMMARY | 2024-07-05 10:00 | XMS_ITS | Referral Summary ---
Author Organization 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
--- OUTSIDE RECORDS SUMMARY | 2024-07-05 10:00 | XMS_ITS | CONTINUITY OF CARE DOCUMENT ---
Author Name cleo, cleo Address Unknown Organization [facility] Address [address] [place] [address] Phone [phone] Care Team Providers Care Supervisor Park Workers Name Role Phone Zoila SPANGLER, Cristian Unavailable SURJIT ANDREWS MD Unavailable SURJIT ANDREWS MD Unavailable VITAL SIGNS Date Observation Value Provider blood pressure, diastolic 96 mm[Hg] Whitaker blood pressure, systolic 142 mm[Hg] Ephraim Su SOCIAL HISTORY Date Observation Value Provider smoking status current Luisa escobar FUNCTIONAL STATUS Date Observation Value Provider periodic limb movement index absent (0) Arminda Peters INSURANCE PROVIDERS Payer name Policy type / Coverage type [place] red democrat ID [employer] OPEN ACCESS Other [id number]
[2024-07-05 10:04] LABS: Basophils Absolute Auto 0.1 K/mm3 (0.0-0.1); Basophils Percent Auto 1.2 % (0.2-1.2); Eosinophils Absolute Auto 0.3 K/mm3 (0-0.3); Hematocrit 45.9 % (37.0-47.0); Hemoglobin 15.4 g/dL (12.0-15.0); Immature Granulocyte Absolute 0.02 K/mm3 (0.00-0.031); Immature Granulocyte Percent A 0.3 % (0-0.5); Lymphocytes Absolute Auto 3.17 K/mm3 (0.9-3.2); Lymphocytes Percent Auto 42.6 % (18.3-44.2); Mean Corpuscular HGB Conc 33.6 g/dl (32-36); Mean Corpuscular Hemoglobin 28.6 pg (26-34); Mean Corpuscular Volume 85.3 fl (80-100); Mean Platelet Volume 8.4 fl (7.4-10.4); Monocytes Absolute Auto 0.6 K/mm3 (0.1-0.6); Monocytes Percent Auto 7.4 % (2.6-8.5); Neutrophils Absolute Auto 3.3 K/mm3 (1.3-6.7); Neutrophils Percent Auto 44.5 % (45.5-73.1); Platelet Count Result 250 k/mm3 (150-375); Red Blood Count 5.38 M/mm3 (4.2-5.4); Red Cell Distribution Width 13.3 % (11.5-14.5); White Blood Count 7.4 K/mm3 (4.5-10.0)
[2024-07-05 10:16] LABS: Amylase 59 U/L (30-110); Lipase 84 U/L (23-300)
[2024-07-05 10:17] LABS: Anion Gap 7 mmol/L (4-12); Blood Urea Nitrogen 15 mg/dL (7-17); Calcium 9.6 mg/dL (8.4-10.2); Carbon Dioxide 28 mmol/L (22-30); Chloride 103 mmol/L (98-107); Estimated Glomerular Filt Rate > 60; Glucose 91 mg/dL (65-110); Potassium 4.2 mmol/L (3.4-5.0); Sodium 138 mmol/L (137-145)
[2024-07-06 10:57] LABS: Alanine Aminotransferase 25 U/L (6-35); Albumin Level 4.2 g/dL (3.5-5.1); Alkaline Phosphatase 49 U/L (38-126); Aspartate Amino Transferase 26 U/L (14-36); Bilirubin,Total 0.5 mg/dL (0.2-1.3)
== END 2024-07-05 09:25 | disposition home or self-care (01) ==
LOC: ANHSURGERY 09:30
PROVIDERS: Anesthesiology; PCP Internal Medicine; Visit Provider Surgery
DX: E78.5 Hyperlipidemia, unspecified (principal); I10 Essential (primary) hypertension; K80.10 Calculus of gallbladder with chronic cholecystitis without obstruction; Z79.899 Other long term (current) drug therapy
CPT/HCPCS: 36415; 80048; 80076; 82150; 83690; 85025; 93005

== ENCOUNTER 2024-07-13 02:45 | Day surgery (SDC) | payer OTHER, SELFPAY ==
[2024-07-01 12:38] VITALS: BMI 30.2
--- NOTE | 2024-07-01 12:45 | PC.NURSE ---
Report to the Outpatient Waiting Room, entrance under the green pavilion located off [facility], at time _0800_ on date _[id number]_. Planned Procedure Time: _1000_.? Time changes happen often and if your time is changed the preop area will call you the afternoon before. - You and your visitor will be asked to self-screen and do not enter if you have any COVID symptoms. Please call surgeon if you need to reschedule. - A mask is optional within the hospital at this time. Patients may have clear liquids (water, carbonated beverages, clear teas, apple juice) until 3 hours prior to surgery with a maximum of 20 ounces. - No food from midnight until time of surgery and no smoking. This includes no chewing gum, candy or mints. Take only the following medications with a SIP of water on the morning of surgery: __None DO NOT STOP ANY OF YOUR OTHER PRESCRIPTION MEDICATIONS PRIOR TO SURGERY EXCEPT THE FOLLOWING Medications to discontinue per physician ____Llysine, Peppermint and Icosapent ____ Date to take last oghw___[phone]____ Please no make-up, nail malay, hairspray, perfume, deodorant, or body powder the day of surgery.? No jewelry (including any body piercings) or valuables the day of surgery, leave them at home.? Please take a shower or bath the night before, or the morning of, surgery with an antibacterial soap.? Wear comfortable, loose fitting clothing.? - Jewelry must be removed prior to entering the operating room.? Rings and piercings that are not removed may be cut off. - The hospital will not accept responsibility for valuables.? - Please leave all valuables, including medications, at home the day of surgery. If you are going home after surgery, a licensed water taxi driver must drive you home.? - NO public transportation without another adult if you receive anesthesia. - We recommend that an adult stay with you for 24 hours following discharge. - We also recommend that you do not drive, make important decision, drink alcoholic beverages, or take any drugs that were not prescribed by your health care provider for at least 24 hours after your discharge time. Follow any additional instructions given to you from your surgeon. Telephone instructions given to __Tammy___and asked if any additional questions and then verbalized understanding. Patient advised to call surgeon office or pre surgery nurse liaison [phone] if any additional questions.
--- NOTE | 2024-07-12 12:24 | P.SS_ITS ---
Same Day Admit/Disch: HPI History of Present Illness Chief complaint: chronic cholecystitis with stones Narrative: Livier Smith is a 63 year old female With gallstones and episodes of abdominal pain. Patient states on 11/07/23 she experienced an episode of extreme bloating, epigastric pain and gas pain which resolved over 48 hours. She then had another episode approximately 6 weeks later with the same symptoms but lasted only about 24 hours. Patient was seen by GI and had CT scan done on 04/04/24 which showed Cholelithiasis. Gallbladder wall thickening may be secondary to acute or chronic cholecystitis and 4.1 cm cyst in right ovary, likely a follicular cyst. She then had a HIDA scan done on 05/23/24 which showed No evident gallbladder activity which is concerning for acute cholecystitis. Differential would include chronic cholecystitis and either prolonged fasting or recent ingestion within 4 hours of imaging. Patient states when she saw GI in 01/2024 she was instructed to start taking Ibgard and Phazyme. She reports this has relieved her symptoms and she has not had any more episodes. She is also maintaining a low carb diet at this time. She denies any specific foods triggering her symptoms. She reports a family history of gallbladder disease in father. Patient is taken to surgery at this time for laparoscopic cholecystectomy. [facility] Past Medical History Medical History Obesity Hyperlipidemia HTN (hypertension) Surgical History Surgical History Hx of hernia repair 25 years ago Family History Family History Grandparent Heart disease Hypertension Father Heart attack Social History Social History Smoking packs per day: 0.5 Smoking cigarettes per day: 10.0 Years smoked: 40 Smoking pack-years: 20.00 Smoking status: Current every day smoker Tobacco type: cigarettes Alcohol intake: current Alcohol use details: occasional Substance use: never Substance use type: does not use Lack of Transportation: No Lack of Food: Never True Current Housing: I Have Housing Concerned About Future Housing: No Difficulty Paying Gas/Electric Bills: No Difficulty Paying for Meds: No Currently Unemployed: No Education: High School Diploma/GED Difficulty w/ Childcare or Family Care: No Living arrangements: with family Spiritual care concerns: No Same Day Admit/Disch: Med Pre-admit Medications Home Medications ?Medication ?Instructions ?Recorded ?Confirmed ?Type lysine 1,000 mg tablet 1,000 mg PO DAILY 10/14/22 07/13/24 History fenofibric acid (choline) 135 mg 135 mg PO DAILY #90 caps 10/06/23 07/13/24 Rx capsule,delayed release icosapent ethyl 1 gram capsule 2 g (2 x 1 gram) PO BID #360 caps 10/06/23 07/01/24 Rx peppermint oil 90 mg 90 mg PO BID 06/06/24 07/13/24 History capsule,delayed,extended release (IBgard) simethicone 180 mg capsule 180 mg PO DAILY 06/06/24 07/01/24 History (Phazyme) triamterene 37.5 1 cap PO DAILY #90 caps 07/04/24 Rx mg-hydrochlorothiazide 25 mg capsule ketorolac 10 mg tablet 10 mg PO Q6H 4 days #16 tabs 07/13/24 Rx oxycodone-acetaminophen 5 mg-325 0.5 - 1 tablet PO Q4H PRN pain #10 07/13/24 Rx mg tablet (Percocet) tabs Review of Systems Review of Systems All systems reviewed & are unremarkable except as noted in HPI and below ( HPI) Exam Const: General: comfortable, no acute distress, alert and awake HENMT: Head: normocephalic and atraumatic Mouth: Yes Normal oral and palatal mucosa present Eyes: Conjunctivae: conjunctivae normal Pupils: Equal, round and reactive pupils present EOM: EOMs intact bilaterally Neck: Neck: normal visual inspection, no lymphadenopathy and nontender Resp: Effort & Inspection: normal respiratory effort Auscultation: clear to auscultation bilaterally Cardio: Rate: regular rate Rhythm: regular rhythm Heart sounds: no gallops, no murmurs and no rubs GI: Inspection: non-distended GI Palp: Yes Soft to palpation, No Tenderness to palpation present (GI), No Hepatomegaly present and No Splenomegaly present Skin: Lesions: no lesions Rashes: no rashes Neuro: General: no focal motor deficits and CN's II-XI intact bilaterally Cranial nerves: Yes Equal, round and reactive pupils present, Yes Bilaterally intact EOM present, Yes facial symmetry and Yes Midline tongue present Speech: normal speech Motor exam (neuro): 5/5 motor strength present throughout and Motor abnormalities not present Extrem: General: no clubbing, cyanosis or edema and edema Psych: Affect: normal affect Thought process: Normal thought process present Insight: Good insight present (Psych) DS: Summary Time Spent with Patient Time attestation: Total time spent providing and/or coordinating discharge services: DS: Admitting Diagnosis Discharge Date 07/13/2024 Admitting Diagnosis * chronic cholecystitis, cholelithiasis- I discussed the diagnosis and procedure with the patient including the risks, benefits, alternatives. I explained the length of the procedure and the usual time of recovery. I explained that this is typically an outpatient surgery. All questions were answered. She understands and agrees to go ahead. * Chronic smoker * hypertension DS: Discharge Diagnosis Discharge Diagnosis (1) Chronic cholecystitis with calculus: Code(s): K80.10 - Calculus of gallbladder with chronic cholecystitis without obstruction Status: Chronic Assessment and Plan: Patient underwent laparoscopic cholecystectomy 07/13/[address] Daniel Discharge Plan Discharge Patient Disposition: Home, Self-Care Discharge Instructions: Remember to use your incentive spirometer during your recovery to promote breathing. 1. May shower the day after surgery over incisions. 2. Call office for: -Wound increasingly painful or bleeding -Vomiting -Fever of greater than 101 degrees 3. Expect some blood on dressing and old blood on skin. 4. If no bowel movement for three days, take 1 oz. (30 ml) Milk of Magnesia, if no results, take Fleets enema. 5. No heavy lifting > 15-20 pounds for 2 weeks. 6. No driving for 3 days or while taking narcotic pain medications. 7. Up walking 10-30 minutes three times per day. 8. Resume previous home medications. 9. Follow-up 10-14 days in office for wound check or as previously scheduled. 10. Oral pain medications prescription to be sent home with patient. 11. NUTRITION: Start out by drinking fluids and increase your diet as tolerated. If you experience nausea, try dry toast, crackers, and 7-UP. If nausea or vomiting persists, contact your surgeon?s office. Patient Language: Maori Stand Alone Forms: General Discharge Instructions Follow-up/Referrals: Richard Daniel MD [Physician] - 2 Weeks Discharge Medications: New ketorolac 10 mg tablet 10 mg PO Q6H 4 Days Qty: 16 0RF oxycodone-acetaminophen [Percocet] 5-325 mg tablet 0.5 - 1 tablet PO Q4H PRN (Reason: pain) Qty: 10 0RF Continued lysine 1,000 mg tablet 1,000 mg PO DAILY IBgard 90 mg capsule,delayed,extend.release 90 mg PO BID Patient Comments: Says takes once a day 2 capsules. simethicone [Phazyme] 180 mg capsule 180 mg PO DAILY icosapent ethyl 1 gram capsule 2 g PO BID Qty: 360 2RF fenofibric acid (choline) 135 mg capsule,delayed release(DR/EC) 135 mg PO DAILY Qty: 90 2RF triamterene-hydrochlorothiazid 37.5-25 mg capsule 1 cap PO DAILY Qty: 90 2RF
[2024-07-13] VITALS (9 sets, daily range): BP systolic 131–152; BP diastolic 66–90; PULSE 62–74; RESP 11–20; TEMP 36.2; O2SAT 98–100; BMI 35.1
--- OUTSIDE RECORDS SUMMARY | 2024-07-13 02:50 | XMS_ITS | Referral Summary ---
Author Organization [facility] [employer] Address [address] [place] [address] Care Team Providers Care Scoop Filler Name Role Phone Sesar Ruth JEANETTE-LOCKSTITCH TUNNEL ELASTIC OPERATOR Primary Care Provider + Source Comments [facility] and Associated Physician Practices is amultiple site organization consisting of ambulatory clinics and hospital sitesin [place], [place], [place] and [place]. This disclosure is being madepursuant to the Care Everywhere program and may not contain all information available regarding this patient. Last updated 18.[facility] [employer] Allergies No known active allergies Medications * [...] of Treatment Not on file Care Teams Scoop Filler Relationship Specialty Start Date End Date Ruth Kaba APRN-CARSON [address] [place] [address] PCP - General 11/21/21
--- OUTSIDE RECORDS SUMMARY | 2024-07-13 02:50 | XMS_ITS | Patient Health Summary ---
Author Organization [facility] Address [address] [place] [address] Care Team Providers Care Sports Media Name Role Phone Sesar Ruth JEANETTE-EMBALMER APPRENTICE Primary Care Provider + Note from [facility],non-owned Affiliates and Associated Physician Practices is amultiple site organization consisting of ambulatory clinics and hospital sitesin [place], [place], [place] and [place]. This disclosure is being madepursuant to the Care Everywhere program and may not contain all information available regarding this patient. Last updated 18.[facility] Allergies No known active allergies Medications * [...] Strep A Internal Control Present Lot # [id number] Expiration Date Throat ENTIRE THROAT (SURFACE REGION OF NECK) / Unknown 03/05/2018 [facility] - POINT OF CARE ORDERABLES Care Teams Sports Media Relationship Specialty Start Date End Date Ruth Kaba APRN-CNP [address] [address] PCP - General 11/21/21
--- OUTSIDE RECORDS SUMMARY | 2024-07-13 02:50 | XMS_ITS | Clinical Summary ---
Author Organization [facility] Address [address] [place] [id number] Care Team Providers Care Nursing Home Director Name Role Phone Unavailable Primary Care [...]
--- OUTSIDE RECORDS SUMMARY | 2024-07-13 02:50 | XMS_ITS | Referral Summary ---
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
--- OUTSIDE RECORDS SUMMARY | 2024-07-13 02:50 | XMS_ITS | Clinical Summary ---
Author Organization [facility] [employer] Address [address] [place] [address] Care Team Providers Care Animation Camera Operator Name Role Phone Ruth Kaba JEANETTE-CORE SHAPER TOP Primary Care Provider + Source Comments [facility] and Associated Physician Practices is amultiple site organization consisting of ambulatory clinics and hospital sitesin [place], [place], [place] and [place]. This disclosure is being madepursuant to the Care Everywhere program and may not contain all information available regarding this patient. Last updated 18.[facility] Allergies No known active allergies Medications * [...] age to complete this topic Care Teams Animation Camera Operator Relationship Specialty Start Date End Date Ruth Kaba APRN-CARSON [address] [place] [id number] PCP - General 11/21/21
--- OUTSIDE RECORDS SUMMARY | 2024-07-13 02:50 | XMS_ITS | CONTINUITY OF CARE DOCUMENT ---
Author Name cleo, cleo Address Unknown Organization [facility] Address [address] [place] [address] Phone [phone] Care Team Providers Care Cafeteria Clerk Name Role Phone Zoila SPANGLER, Cristian Unavailable SURJIT ANDREWS MD Unavailable [phone] SURJIT ANDREWS MD Unavailable VITAL SIGNS Date Observation Value Provider blood pressure, diastolic 96 mm[Hg] Whitaker blood pressure, systolic 142 mm[Hg] Ephraim Su SOCIAL HISTORY Date Observation Value Provider smoking status current Luisa escobar FUNCTIONAL STATUS Date Observation Value Provider periodic limb movement index absent (0) Arminda Peters INSURANCE PROVIDERS Payer name Policy type / Coverage type [place] [employer] party ID [employer] OPEN ACCESS Other [id number]
--- OUTSIDE RECORDS SUMMARY | 2024-07-13 02:50 | XMS_ITS | Clinical Summary ---
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 Gender Identity Not on file Sexual Orientation [...] AM T: ??12/07/2023 10:08 AM Report ID: [id number] Reading Location: ??MAMMMHE Romero Velarde MD IMG MAMMO PROCEDURES Carmela l Result from Last 3 Months or Most Recently Relevant to Health Maintenance Insurance [facility] HMO/PPO Address: [facility] [address] [place] [address] Care Teams Registered Midwife Relationship Specialty Start Date End Date Gianluca Adams MD [address] [facility] [address] [place] [address] PCP - General Internal Medicine 11/20/22
--- NOTE | 2024-07-13 06:57 | WPDHPUPDATE1 ---
History and Physical Update Update Date/Time: 07/13/24 06:57 History and Physical has been reviewed, including an updated exam of the patient. There are NO changes in the patient's condition. Risks, benefits, and alternatives have been discussed and questions answered. Patient agrees to proceed with procedure.
[2024-07-13] MEDS: LACTATED RINGERS 1,000 ML 30 ML IV CONT ×2 (08:25→12:29)
[2024-07-13] MEDS: ACETAMINOPHEN 500 MG TABLET 1000 MG PO (08:39)
[2024-07-13] MEDS: KETOROLAC 15 MG/ML VIAL (*BKC) IV PUSH (08:39)
--- NOTE | 2024-07-13 09:53 | P.PNAN_ITS ---
Anes - Initial Pre Proc Eval Procedure: Operation Date: 07/13/24 10:00 Proposed Procedures p Laparoscopic Cholecystectomy - Richard aDniel MD Date/Time: 07/13/24 09:53 Surgeon: Richard Daniel MD Pre Op Diagnosis: chronic cholecystitis with stones Patient Data Age: 63 Gender: F Height: 1.55 m Weight: 84.3 kg Last Vital Signs Temp 36.2 C L 07/13/24 08:00 Pulse 74 07/13/24 08:00 Resp 16 07/13/24 08:00 BP 139/85 07/13/24 08:00 Pulse Ox 98 07/13/24 08:00 O2 Del Method Room Air 07/13/24 08:00 Allergies Allergy/AdvReac Type Severity Reaction Status Date / Time No Known Allergies Allergy Unknown Verified 07/13/24 08:14 Home Medications ?Medication ?Instructions ?Recorded ?Confirmed ?Type lysine 1,000 mg tablet 1,000 mg PO DAILY 10/14/22 07/13/24 History fenofibric acid (choline) 135 mg 135 mg PO DAILY #90 caps 10/06/23 07/13/24 Rx capsule,delayed release icosapent ethyl 1 gram capsule 2 g (2 x 1 gram) PO BID #360 caps 10/06/23 07/01/24 Rx peppermint oil 90 mg 90 mg PO BID 06/06/24 07/13/24 History capsule,delayed,extended release (IBgard) simethicone 180 mg capsule 180 mg PO DAILY 06/06/24 07/01/24 History (Phazyme) triamterene 37.5 1 cap PO DAILY #90 caps 07/04/24 Rx mg-hydrochlorothiazide 25 mg capsule Patient hx anesthesia problems: none Family hx anesthesia problems: none Results Review: All pre-operative results and documents have been reviewed as part of the pre- operative evaluation. [facility] Past Medical History Medical History Obesity Hyperlipidemia HTN (hypertension) Surgical History Surgical History Hx of hernia repair 25 years ago Family History Family History Grandparent Heart disease Hypertension Father Heart attack Social History Social History Smoking packs per day: 0.5 Smoking cigarettes per day: 10.0 Years smoked: 40 Smoking pack-years: 20.00 Smoking status: Current every day smoker Tobacco type: cigarettes Alcohol intake: current Alcohol use details: occasional Substance use: never Substance use type: does not use Lack of Transportation: No Lack of Food: Never True Current Housing: I Have Housing Concerned About Future Housing: No Difficulty Paying Gas/Electric Bills: No Difficulty Paying for Meds: No Currently Unemployed: No Education: High School Diploma/GED Difficulty w/ Childcare or Family Care: No Living arrangements: with family Spiritual care concerns: No Anes - Eval Final PreProcedure Day of Procedure 07/13/24 09:53 Patient weight: obese Heart: regular rate and rhythm Lungs: clear to auscultation Airway: Mallampati scale class II Neurological: alert and oriented Last oral intake: >/= 8 hours ASA classification: III Emergent: no Anesthetic plan: proceed Anesthesia type and monitoring: general ETT and standard monitoring Results Review: All pre-operative results and documents have been reviewed as part of the pre- operative evaluation. Informed Consent: The patient's anesthetic plan and its attendant risks and benefits were discussed with the patient/family/POA. Questions were solicited and answers provided to the satisfaction of the patient/family/POA.
[2024-07-13] MEDS: ceFAZolin 2 GM/D5W 50 ML 2 GM/50 ML BAG IVPB (10:14)
[2024-07-13] MEDS: BUPIVACAINE/EPINEPHRINE 0.5% 50 ML VIAL 30 ML INFILTRATE (10:43)
--- NOTE | 2024-07-13 11:31 | W.PM.PROC2 ---
Procedure Note - Detailed Date of Procedure 07/13/24 Pre-op Diagnosis chronic cholecystitis with stones Post-op Diagnosis Same Procedure Performed Laparoscopic cholecystectomy Surgeon Richard Daniel MD Email Production Consultant Patric Anesthesia General and Local Indications Patient started having severe bloating and epigastric pain last summer. This happened a couple of other times and CT scan showed gallstones with some gallbladder wall thickening. She had and an hepatobiliary scan which showed nonvisualization of the gallbladder consistent with cholecystitis. She was seen in the office and felt to have chronic cholecystitis with gallstones. She is taken to surgery now for laparoscopic cholecystectomy Findings Severe chronic inflammation, gallstones. Gallbladder was distended with a very thickened wall. The area around the cholecystohepatic triangle at very thickened tissues and was hypervascular. The tissues were fibrotic due to the chronic inflammation. There was no biliary ductal dilatation. There were no liver abnormalities. Description of Procedure Patient was taken to surgery and induced into general anesthesia. The abdomen is prepped and draped. Trocars were placed in the usual fashion using applied Medical optical trocars and a 5 mm camera. Gallbladder was freed from some omental adhesions. A laparoscopic aspirator was then used to decompress the gallbladder. It was obvious that there were numerous stones in the gallbladder and that the wall was very thickened. The gallbladder was then freed from additional adhesions and retracted anterosuperiorly. Traction on the infundibulum was carried out. There was is a good I stone in the infundibulum which had to be worked around to grasp the gallbladder adequately. Dissection was then carried out in the cholecystohepatic triangle. The cystic duct and cystic artery were dissected very carefully. There was a cystic artery on the lateral aspect of the gallbladder wall which appeared to be an adhesion. This was divided and some arterial bleeding occurred. This was quickly clamped and was then clipped to control the bleeding. Dissection was then continued dissecting the gallbladder off the liver over its lower 3rd. The branch of the cystic artery on the medial side of the gallbladder was dissected out and securely clipped and divided. We then clipped and divided the cystic duct. The gallbladder was then dissected free from the liver continuing the dissection towards the fundus of the gallbladder. The inflammation was severe and an occasional entry into the liver occurred but there was not any significant bleeding associated with that. Cautery was used for hemostasis. We continued our dissection eventually the gallbladder was completely freed from the liver. It was placed in an Endo-Catch bag. I had to enlarge the skin incision as well as the fascial opening at the epigastric trocar site to accommodate the gallbladder with its thickened wall and large stones. Once the gallbladder was removed in an Endo-Catch bag. We replaced the epigastric trocar. I also had to clip the skin and subcutaneous to allow us to re insufflate with CO2 gas. On really looking at the gallbladder fossa, we irrigated and suctioned the area repeatedly. A couple of small areas were cauterized. All looked very good with no evidence of bleeding or bile leakage. We then used a Marquez cone and 0 Vicryl and closed the fascia at the epigastric trocar site. We then evacuated CO2 and removed the trocar sleeves. Skin wounds were closed with subcuticular 4-0 Monocryl skin suture. The wounds were dressed with Exofin surgical adhesive. The patient was awakened and taken to recovery in good condition. Sponge needle counts were correct x2. Estimated Blood Loss -20 Drains No Packing No Pathology Yes (Gallbladder) Complications None Condition Stable Disposition PACU [facility] Billing Surgery - Charge Forward: Surgery Billing (Laparoscopic cholecystectomy)
== END 2024-07-13 13:30 | disposition home or self-care (01) ==
PROVIDERS: PCP Internal Medicine; Visit Provider Surgery
PROC: 0FT44ZZ Resection of Gallbladder, Percutaneous Endoscopic Approach (ICD-10-PCS; CPT 47562; principal; 2024-07-13 10:00)
DX: K80.10 Calculus of gallbladder with chronic cholecystitis without obstruction (principal); F17.210 Nicotine dependence, cigarettes, uncomplicated; E66.9 Obesity, unspecified; Z68.35 Body mass index [BMI] 35.0-35.9, adult
CPT/HCPCS: 47562; 88304; A9270; J0690; J1100; J1171; J1885; J2250; J2371; J2405; J2704; J3010; J7030; J7120

== ENCOUNTER 2024-09-18 09:05 | Outpatient (CLI) | payer OTHER, SELFPAY ==
--- NOTE | ~2024-09-18 | CT_ITS ---
CT Scan of the Chest without Contrast: Clinical Indication: Lung cancer screening, nicotine dependence Technique: Contiguous sections were acquired throughout the chest without intravenous contrast. Dose reduction technique was used on this scan by utilizing automated exposure control and iterative recon struction technique. The dose-length product (DLP) was 111.97 mGy-cm. COMPARISON: 11/04/2022 Findings: There is no evidence of any significant mediastinal, hilar or axillary lymphadenopathy. The mediastin al soft tissues appear normal. There is no evidence of pleural or pericardial effusion. The lungs are clear. No pulmonary nodules or infiltrates are noted. Images through the upper abdomen reveal no abnormalities. Impression: Lung RADS 1: Negative. 12 month follow-up screening CT advised. Reviewed, dictated and finalized at location . Impression: Lung RADS 1: Negative. 12 month follow-up screening CT advised.
--- OUTSIDE RECORDS SUMMARY | 2024-09-18 09:08 | XMS_ITS | Clinical Summary ---
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 Gender Identity Not on file Sexual Orientation [...] Vaccine ( season) 2024 04/24/2021, 09/01/2020, 08/09/2020 Breast Cancer Screening-Mammogram 12/06/2024 12/07/2023, 02/24/2023, 01/01/2022, Additional history exists Influenza Vaccine (Season Ended) 2025 04/23/2021, 03/11/2020, 05/18/2019, Additional history exists Pneumococcal vaccine <65 Aged [...] Narrative 12/07/2023 10:08 AM CDT EXAM DESCRIPTION: US BREAST LEFT LIMITED; DIAGNOSTIC MAMMOGRAM BILATERAL W MIGUEL A REASON FOR STUDY: 63-year-old woman comes in today for evaluation of an area of palpable concern/pain in the left breast, and screening of the right breast. COMPARISON: 02/24/2023, 01/01/2022, 11/08/2020. FINDINGS: CC and MLO digital breast tomosynthesis of both breasts with C view was performed. Targeted sonographic examination of the left breast was also performed with real-time grayscale images and color Doppler. FINDINGS: MAMMOGRAPHIC FINDINGS: DENSITY: There are scattered areas of fibroglandular density. BREASTS: There are a few scattered benign microcalcifications in both breasts without suspicious interval change. There is no new suspicious finding in either breast on mammogram. Specifically, no new suspicious findings are seen in the left breast in the area of reported concern. A BB marker was placed at this level, and localizes to the 7 o'clock position posterior depth. ULTRASOUND FINDINGS: Targeted sonographic examination of the left breast at the 7 o'clock position 9-10 cm from the nipple demonstrates only normal fatty and fibroglandular are tissue without suspicious solid or cystic masses. IMPRESSION: 1. No suspicious findings are seen in the left breast on mammogram or sonogram to account for patient's symptoms. Continued monthly breast self-examination and clinical follow-up is recommended. Any further management at this time should be based on clinical assessment. 2. No new suspicious findings in either breast on mammogram. Annual bilateral screening mammography is recommended in 12 months. BIRADS: 2 - Benign I discussed the findings and recommendations with the patient at the time of the examination. THIS IS AN ELECTRONICALLY VERIFIED FINAL REPORT 12/07/2023 10:08 AM - Electronically signed by Charles Vaughn M.D. RL: ANURADHA Report ID: [id number] [facility] Romero Velarde MD IMG MAMMO PROCEDURES Carmela l Result from Last 3 Months or Most Recently Relevant to Health Maintenance Insurance Care Teams Deposit Clerk Relationship Specialty Start Date End Date Uli Calderon DO [address] [facility] [address] [place] [address] PCP - General Internal Medicine 09/06/24
--- OUTSIDE RECORDS SUMMARY | 2024-09-18 09:08 | XMS_ITS | Clinical Summary ---
Author Organization [facility] [employer] Address [address] [place] [address] Care Team Providers Care Parcel Post Order Clerk Name Role Phone Ruth Kaba JEANETTE-LINE HAUL OWNER OPERATOR Primary Care Provider + Source Comments [facility],non-owned Affiliates and Associated Physician Practices is amultiple site organization consisting of ambulatory clinics and hospital sitesin [place], [place], [place] and [place]. This disclosure is being madepursuant to the Care Everywhere program and may not contain all information available regarding this patient. Last updated 18.[facility] [employer] Allergies No known active allergies Medications * Be aware that medications may not be up to date on this document. Alwaysverify current medications with the patient. calcium-vitamin D (CALTRATE PLUS D) 600-200 MG-UNIT tablet Take 1 tablet by mouth once daily Active Cholecalciferol (VITAMIN D PO) Activ e FENOFIBRATE PO Activ e Icosapent Ethyl (VASCEPA PO) Active Family History [...] e alcohol) maybe once weekly, not always Comments No Sex and Gender Information Value Date Recorded Sex Assigned at Not on file Legal Sex Female 8:31 AM CDT Gender Identity Not on file Sexual Orientation Not on file Last Filed Vital Signs Vital Sign Reading Time Taken Comments Blood Pressure 110/80 03/05/2018 9:46 AM CDT Pulse 85 03/05/2018 9:46 AM CDT Temperature 37 C (98.6 F) 03/05/2018 9:46 AM CDT Respiratory Rate 18 [...] VACCINE ( - 2023-2 5 season) 2024 DEPRESSION SCREENING 06/08/2024 INFLUENZA VACCINE (Season Ended) 2025 Respiratory Syncytial Virus (RSV) Vaccine Pt: or [...] to complete this topic MENINGOCOCCAL (Group B) VACC INE SHARED DECISION-MAKING Aged Out No longer eligibl e based on patient's age to complete this topic MENINGOCOCCAL GROUPS A/C/Y/W VACCINE Aged Out No longer eligible b ased on patient's age to complete this topic Insurance [employer] [facility] SELF PAY NO INSURANCE Member Subscriber Plan / Payer (Ef fective for All Dates) Name:Stanley Smith Member ID:Not on file Relation to Subscriber:Not on file Name:STANLEY SMITH Subscriber ID:Not on file (Home) Address: [address] [place] [address] Payer ID:Not on file Group ID:Not on file Type:Self Pay Address: [place], [place] Care Teams Parcel Post Order Clerk Relationship Specialty Start Date End Date Ruth Kaba APRN-CARSON [address] [address] PCP - General 11/21/21
--- OUTSIDE RECORDS SUMMARY | 2024-09-18 09:08 | XMS_ITS | Referral Summary ---
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 RL: ANURADHA Report ID: [id number] Reading Location: [facility] Romero Velarde MD IMG MAMMO PROCEDURES Carmela l Result from Last 3 Months or Most Recently Relevant to Health Maintenance Insurance [facility] HMO/PPO Address: [facility] [address] [place] [address] Care Teams Saddle Lining Stitcher Relationship Specialty Start Date End Date Uli Calderon DO [address] [place] [address] [place] [address] PCP - General Internal Medicine 09/06/24
--- OUTSIDE RECORDS SUMMARY | 2024-09-18 09:08 | XMS_ITS | Clinical Summary ---
Author Organization [facility] Address [address] [place] [id number] Care Team Providers Care Civil Engineering Draftsperson Name Role Phone Unavailable Primary Care Provider [...] 2010 COVID-19 Vaccine (2023-2 5 season) 2024 RSV Immunization or 60+ Years (1 - 1-dose 75+ series) 09/11/2035 Meningococcal B Vaccine Aged Out No l onger eligible based on patient's age to complete this topic Meningococcal Vaccine Aged Out No nya nelia eligible based on patient's age to complete this topic Pneumococcal Vaccine: Pediat rics (0 to 5 Years) and At-Risk Patients (6 to 49 Years) Aged Out No longer eligible b ased on patient's age to complete this topic RSV Immunizations Under 20 Months Aged Out No longer eligible based on patient's age to complete this topic
--- OUTSIDE RECORDS SUMMARY | 2024-09-18 09:08 | XMS_ITS | CONTINUITY OF CARE DOCUMENT ---
Author Name cleo, cleo Address Unknown Organization [facility] Address [address] [place] [address] Phone [phone] Care Team Providers Care Crop Pest Control Specialist Name Role Phone Zoila SPANGLER, Cristian Unavailable [phone] SURJIT ANDREWS MD Unavailable SURJIT ANDREWS MD Unavailable VITAL SIGNS Date Observation Value Provider blood pressure, diastolic 96 mm[Hg] Whitaker blood pressure, systolic 142 mm[Hg] Ephraim Su SOCIAL HISTORY Date Observation Value Provider smoking status current Luisa escobar FUNCTIONAL STATUS Date Observation Value Provider periodic limb movement index absent (0) Arminda Peters INSURANCE PROVIDERS Payer name Policy type / Coverage type Friant red republican ID [employer] OPEN ACCESS Other [id number]
== END 2024-09-18 09:06 | disposition home or self-care (01) ==
PROVIDERS: PCP Internal Medicine; Visit Provider Internal Medicine
DX: Z12.2 Encounter for screening for malignant neoplasm of respiratory organs (principal); Z87.891 Personal history of nicotine dependence
CPT/HCPCS: 71271

== ENCOUNTER 2025-04-19 07:40 | Outpatient (CLI) | payer OTHER, SELFPAY ==
--- OUTSIDE RECORDS SUMMARY | 2025-04-19 07:43 | XMS_ITS | Clinical Summary ---
Author Organization [facility] [employer] Address [address] [place] [address] Care Team Providers Care Wood Room Hand Name Role Phone Ruth Kaba JEANETTE-COTTON EXPERT Primary Care Provider + Source Comments [facility],non-owned Affiliates and Associated Physician Practices is amultiple site organization consisting of ambulatory clinics and hospital sitesin [place], [place], [place] and [place]. This disclosure is being madepursuant to the Care Everywhere program and may not contain all information available regarding this patient. Last updated 18.[facility] [employer] [facility] Allergies No known active allergies Medications * [...] 9:46 AM CDT Height 157.5 cm (5' 2) 03/05/2018 9:46 AM CDT Body Mass Index [...] SCREENING 1960 LIPID TESTING 1960 MAMMOGRAM 1960 HIV SCREENING 09/11/1975 HEPATITIS C SCREENING 09/06/1978 DTAP/TDAP/TD VACCINES (1 - Tdap) 09/11/1979 PNEUMOCOCCAL VACCINE 50+ (1 of 2 - PCV) 09/11/1979 PAP SMEAR 1981 ZOSTER VACCINE (1 of 2) 2010 SCREENING FOR DIABETES 03/05/2018 DEPRESSION SCREENING 06/08/2024 COVID-19 VACCINE (1 - 2023-2 5 season) 2025 INFLUENZA VACCINE (#1) 2025 Respiratory Syncytial Virus (RSV) Vaccine Pt: [...] age to complete this topic Insurance [employer] SELF PAY NO INSURANCE Member Subscriber Plan / Payer (Ef fective for All Dates) Name:Stanley Smith Member ID:Not on file Relation to Subscriber:Not on file Name:STANLEY SMITH Subscriber ID:Not on file (Home) Address: [address] [place] [address] Payer ID:Not on file Group ID:Not on file Type:Self Pay Address: [facility] Care Teams Wood Room Hand Relationship Specialty Start Date End Date Ruth Kaba APRN-COTTON EXPERT [address] [address] PCP - General 11/21/21
--- OUTSIDE RECORDS SUMMARY | 2025-04-19 07:43 | XMS_ITS | Clinical Summary ---
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 Gender Identity Not on file Sexual Orientation [...] Tdap) 09/24/2020 09/24/2010 Covid-19 Vaccine ( season) 2025 04/24/2021, 09/01/2020, 08/09/2020 Influenza Vaccine (#1) 2025 , 03/11/2020, 05/18/2019, Additional history exists Breast Cancer Screening-Mammogram 12/12/2025 12/12/2024, 12/07/2023, 02/24/2023, Additional history exists Pneumococcal vaccine <65 Aged Out No longer eligible based on patient's age to complete this topic Procedures Procedure Name Priority Date/Time Associated Diagnosis Comments SCREENING MAMMOGRAM BILATERAL W MIGUEL A Schedule Routine, Read Routine (OP Routine) 12/12/2024 7:36 AM CDT Screening mammogram, encounter for from Last 3 Months or Most Recently Relevant to Health Maintenance Results * (ABNORMAL) Screening Mammogram Bilateral W Miguel A (12/12/2024 7:36 AM CDT) Anatomical Region Laterality Modality Breast Bilateral Mammography Impressions 12/12/2024 8:34 AM CDT Right 1) Mass: Right breast 7 mm mass in the inner central region. 2) Calcifications: Right breast calcifications. Left No evidence of malignancy. OVERALL BI-RADS FINAL ASSESSMENT: 0 - Incomplete: Needs Additional Imaging Evaluation RECOMMENDATIONS: Recommend right breast ultrasound. Narrative 12/12/2024 8:34 AM CDT EXAMINATION: Screening Mammogram Bilateral W Miguel A: 12/12/2024 COMPARISON: Relevent prior studies available at the time of interpretation were reviewed, including the most recent mammogram on: 12/07/2023. TECHNIQUE: Mammography was performed with 2D and digital breast tomosynthesis (DBT) images. CAD was utilized. BREAST PARENCHYMAL COMPOSITION: There are scattered areas of fibroglandular density. FINDINGS: Right 1) Mass: There is a 7 mm mass with circumscribed margins seen in the inner central region of the right breast, 3 cm from the nipple. Compared to the previous study, the mass increased in size. 2) Calcifications: There are benign calcifications in a diffuse distribution seen in the right breast. Left There is no suspicious mass, calcification, or architectural distortion. us Self Screening Mammogram IMG MAMMO PROCEDURES Fi nal Result from Last 3 Months or Most Recently Relevant to Health Maintenance Insurance [facility] [place] [address] Care Teams Registered Nurse Midwife Relationship Specialty Start Date End Date Uli Calderon DO PCP - General Internal Medicine 09/06/24
--- OUTSIDE RECORDS SUMMARY | 2025-04-19 07:43 | XMS_ITS | Clinical Summary ---
Author Organization [facility] Address [address] [place] [address] Care Team Providers Care Apprenticeship Training Representative Name Role Phone Unavailable Primary Care Provider [...] Screening with HPV 1990 Mammogram Screening 2000 Pneumococcal Vaccine: 50+ Ye ars (1 of 1 - PCV) 2010 Zoster Vaccines (1 of 2) 2010 COVID-19 Vaccine (2024-2 6 season) 2025 Influenza Adult (#1) 2025 RSV Immunization or 60+ Years (1 - 1-dose 75+ series) 09/11/2035 Hepatitis A Vaccines Aged Out No long er eligible based on patient's age to complete this topic Meningococcal B Vaccine Aged Out No l onger eligible based on patient's age to complete this topic Meningococcal Vaccine Aged Out No nya nelia eligible based on patient's age to complete this topic RSV Immunizations Under 20 Months Aged Out No longer eligible based on patient's age to complete this topic
[2025-04-19 08:48] LABS: Cholesterol 198 mg/dL (0-200); HDL Direct 78 mg/dL; Triglycerides 178 mg/dL (<150)
== END 2025-04-19 07:41 | disposition home or self-care (01) ==
LOC: ANHLAB 07:41
PROVIDERS: PCP Internal Medicine; Visit Provider Internal Medicine
DX: E78.5 Hyperlipidemia, unspecified (principal)
CPT/HCPCS: 36415; 80061